=== PATIENT | male | born 1960 | race Caucasian/White ===

== ENCOUNTER → 2017-12-13 07:05 | Outpatient (CLI) | payer MEDICAID, SELFPAY ==
[2017-12-13 07:47] LABS: Basophils % 0.9 % (0.1-2.0); Eosinophils # 0.2 K/mm3 (0.0-0.4); Eosinophils % 5.6 % (0.1-12.0); Hematocrit 44.2 % (42.0-52.0); Hemoglobin 15.2 g/dL (14.1-18.0); Lymphocytes # 1.5 K/mm3 (0.7-4.5); Lymphocytes % 34.7 K/mm3 (10-50); Mean Corpuscular HGB Conc 34.3 g/dL (31.8-35.4); Mean Corpuscular Volume 90.4 fl (80-94); Mean Platelet Volume 8.2 fl (7.4-10.4); Monocytes # 0.4 K/mm3 (0.1-1.0); Monocytes % 9.5 % (1.7-9.3); Neutrophils # 2.1 K/mm3 (1.8-7.8); Neutrophils % 49.3 % (37.0-80.0); Platelet Count 234 K/mm3 (142-424); Red Blood Count 4.88 M/mm3 (4.60-6.20); White Blood Count 4.3 K/mm3 (4.8-10.8)
[2017-12-13 08:11] LABS: Hemoglobin A1C 6.1 % (0.0-7.0)
[2017-12-13 08:15] LABS: Alanine Aminotransferase 35 U/L (12-78); Albumin Level 3.5 gm/dL (3.4-5.0); Albumin/Globulin Ratio 1.2 (1.1-1.8); Alkaline Phosphatase 80 U/L (46-116); Aspartate Amino Transferase 19 U/L (15-37); Bilirubin,Total 0.6 mg/dL (0.2-1.0); Blood Urea Nitrogen 15 mg/dL (7-18); Calcium 8.9 mg/dL (8.5-10.1); Carbon Dioxide 23 mmol/L (21.0-32.0); Chloride 106 mmol/L (98-107); Chol/HDL Ratio 3.1 (1-3.5); Cholesterol 171 mg/dL (140-200); Creatinine,Serum 1.04 mg/dL (0.70-1.30); Estimated Glomerular Filt Rate 74 ml/min (>60); GFR (African American) 90 ML/MIN (>60); Glucose 108 mg/dL (74-106); HDL Cholesterol 55 mg/dL (27-67); LDL Cholesterol 85 mg/dL (0-130); Sodium 142 mmol/L (136-145); Total Protein,Serum 6.5 gm/dL (6.4-8.2); Triglycerides 153 mg/dL (30-200); VLDL Cholesterol 31 mg/dL (0-40)
[2017-12-14 18:25] LABS: Vitamin D 25 Hydroxy 35.9 ng/mL (30.0-100.0)
== END ==
PROVIDERS: PCP Internal Medicine Adolescent Medicine; Visit Provider Internal Medicine Adolescent Medicine
DX: I10 Essential (primary) hypertension (principal); E55.9 Vitamin D deficiency, unspecified; R73.9 Hyperglycemia, unspecified
CPT/HCPCS: 36415; 80053; 80061; 82652; 83036; 85025

== ENCOUNTER → 2018-07-08 12:52 | Outpatient (CLI) | payer MEDICAID, SELFPAY ==
[2018-07-08 14:27] LABS: Basophils # 0.1 K/mm3 (0-0.2); Basophils % 0.7 % (0.1-2.0); Eosinophils # 0.1 K/mm3 (0.0-0.4); Eosinophils % 0.7 % (0.1-12.0); Hematocrit 45.9 % (42.0-52.0); Hemoglobin 15.2 g/dL (14.1-18.0); Lymphocytes # 1.2 K/mm3 (0.7-4.5); Lymphocytes % 18.6 K/mm3 (10-50); Mean Platelet Volume 7.8 fl (7.4-10.4); Monocytes # 0.6 K/mm3 (0.1-1.0); Neutrophils # 4.7 K/mm3 (1.8-7.8); Platelet Count 287 K/mm3 (142-424); Red Blood Count 4.73 M/mm3 (4.60-6.20); Red Cell Distribution Width 14.3 % (11.5-17.5); White Blood Count 6.6 K/mm3 (4.8-10.8)
[2018-07-08 15:05] LABS: Alanine Aminotransferase 249 U/L (12-78); Albumin/Globulin Ratio 1.1 (1.1-1.8); Alkaline Phosphatase 92 U/L (46-116); Anion Gap 20.7 mEq/L (5-15); Aspartate Amino Transferase 103 U/L (15-37); Bilirubin,Total 0.5 mg/dL (0.2-1.0); Blood Urea Nitrogen 7 mg/dL (7-18); Carbon Dioxide 26 mmol/L (21.0-32.0); Chloride 101 mmol/L (98-107); Chol/HDL Ratio 2.8 (1-3.5); Cholesterol 232 mg/dL (140-200); Creatinine,Serum 1.28 mg/dL (0.70-1.30); Estimated Glomerular Filt Rate 58 ml/min (>60); GFR (African American) 71 ML/MIN (>60); Globulin 3.6 gm/dl (1.3-3.2); Glucose 155 mg/dL (74-106); HDL Cholesterol 84 mg/dL (27-67); LDL Cholesterol 122 mg/dL (0-130); Potassium 3.7 mmoL/L (3.5-5.1); Sodium 144 mmol/L (136-145); Total Protein,Serum 7.6 gm/dL (6.4-8.2); Triglycerides 131 mg/dL (30-200); VLDL Cholesterol 26 mg/dL (0-40)
[2018-07-09 08:32] LABS: Vitamin D 25 Hydroxy 42.3 ng/mL (30.0-100.0)
== END ==
PROVIDERS: Visit Provider Internal Medicine Adolescent Medicine
DX: E78.01 Familial hypercholesterolemia (principal); E55.9 Vitamin D deficiency, unspecified
CPT/HCPCS: 36415; 80053; 80061; 82652; 85025

== ENCOUNTER 2018-07-30 16:15 | Observation (INO) ==
--- NOTE | 2018-07-30 16:47 | Emergency Department Note ---
ED Disposition Clinical Impression: Dehydration, Hypokalemia Disposition: Still a Patient Condition on Discharge: Fair Referrals: Niko Duque MD [Primary Care Provider] - - Critical Care Critical Care Time: No Attestation: On 07/30/18, the high probability of a clinically significant, sudden or life threatening deterioration of the following system(s) required my full and direct attention, intervention and personal management. The time I documented below is in addition to time spent performing reported procedures but includes the following listed in this critical care notation. Medical Decision Making - Hernandez Inquiry Pt receiving controlled substance: No Vital Signs: 07/30/18 16:23 07/30/18 16:28 07/30/18 16:31 Temperature 98.2 F Temperature Source Oral Pulse Rate [Left Radial] 104 H 95 H 122 H Respiratory Rate 18 Blood Pressure [Right Arm] 119/100 128/78 102/43 Blood Pressure Mean [Right Arm] 106 94 62 Blood Pressure Position [Right Arm] Supine Supine Sitting 02 Sat by Pulse Oximetry 98 Oxygen Delivery Method Room Air - Lab Data Lab Results 07/30/18 16:48: WBC 9.3, RBC 4.63, Hgb 15.6, Hct 43.7, MCV 94.4 H, MCH 33.7 H, MCHC 35.7 H, RDW 14.3, Plt Count 108 L, MPV 9.7, Neut % (Auto) 80.1 H, Lymph % (Auto) 11.0, [place] % (Auto) 6.9, Eos % (Auto) 1.9, Baso % (Auto) 0.2, Neut # (Auto) 7.4, Lymph # (Auto) 1.0, [place] # (Auto) 0.6, Eos # (Auto) 0.2, Baso # (Auto) 0.0 07/30/18 16:48: Sodium 127 L, Potassium 2.4 L*, Chloride 82 L, Carbon Dioxide 29, Anion Gap 18.4 H, BUN 43 H, Creatinine 1.94 H, Estimated Creat Clear 61, Es timated GFR 36 L, Est GFR ( Amer) 44 L, Glucose 152 H, Calcium 8.7, Troponin I < 0.02 Result diagrams: 07/30/18 16:48 07/30/18 16:48 Orders (Tests/Meds): ED MEDICATIONS Generic Name Dose Route Start Last Admin Trade Name Freq PRN Reason Stop Dose Admin Sodium Chloride 1,000 mls @ 999 mls/hr 07/30/18 16:45 07/30/18 16:49 Sod Chlor 0.9% 1000ml Bag IV 07/30/18 17:45 999 mls/hr .Q1H1M BRITTANI Administration Discontinued Medications Generic Name Dose Route Start Last Admin Trade Name Freq PRN Reason Stop Dose Admin Ondansetron HCl 4 mg 07/30/18 17:19 07/30/18 17:22 Zofran 4mg/2ml Vial IV 07/30/18 17:20 4 mg ONCE ONE Administration Ondansetron HCl 4 mg 07/30/18 17:22 Zofran 4mg/2ml Vial IV 07/30/18 17:23 ONCE ONE Potassium Chloride 60 meq 07/30/18 17:16 Klor-Con 20meq Tablet PO 07/30/18 17:17 ONCE ONE ORDERS Category Date Time Status 12-lead EKG Request [ECG Request by /Jean] Stat Y 07/30/18 16:31 Ordered - Radiology Data #1 Image(s): Chest Image Reviewed: Yes I have reviewed radiologist's interpretation Preliminary Findings: Normal/NAD - ECG Data Tracing #1 EKG interpreted by nAgel Ji MD: Rhythm: sinus tachycardia Rate: 113 [place]: normal Ectopy: none Conduction: Incomplete right bundle branch block ST Segment Changes: Nonspecific T Wave Changes: none Q Waves: none Low voltage QRS No evidence of acute ischemia or injury Prior electrocardiagrams reviewed. No change from prior tracings. - Physician Consults Physician Consulted: Dunia Time: 17:19 Reason -: Admission Comment/Response: Agrees to admit the patient to the hospital. We discussed the patient's clinical information, including history, exam, laboratory and radiology results and ED course. Per hospital procedure, I will write temporary bridge inpatient orders on the patient. Specific orders requested by the admitting physician: Normal saline with 40 mcg of potassium per liter. Recheck labs in the morning General Adult HPI - General Chief complaint: Dizziness Stated complaint: AO [id number] fell weakness SOb Time Seen by Provider: 07/30/18 16:45 Mode of Arrival: Ambulatory Limitations: No Limitations Description of Symptoms (Recalled from ER Triage Doc. by RN): to ed per pvt with c/o lightheaded dizziness x 2 days vomiting x 2 states fell today "lost my balance" - History of Present Illness HPI narrative: Patient states that he has been dehydrated twice in his life and now he feels the same again. For the past couple of days he has had dry mouth, weakness, dizziness when he stands. Feels presyncopal when he stands and has had to lay down a couple of times quickly to avoid fainting, but has not passed out. States that he has been drinking lots of fluids, but not eating much. States his urination has decreased. No fever. He is not on any diuretics. No excessive diaphoresis. A couple of episodes of vomiting. No diarrhea. He is not sure why he gets dehydrated. No chest pain. He says he feels dyspneic when he gets up and walks around. His sister believes this is because he is weak. No cough. No hemoptysis. No leg swelling. No recent surgeries or hospitalizations. He does have a history of rectal cancer. Just recently comp leted treatment with chemotherapy and radiation in is said to be in remission. - Related Data Home Medications Medication Instructions Recorded Confirmed carvedilol 6.25 mg tablet 6.25 mg PO BID 04/22/18 07/30/18 quetiapine 25 mg tablet 25 mg PO BID 04/22/18 07/30/18 tamsulosin 0.4 mg capsule 0.4 mg PO ONCE 04/22/18 07/30/18 Allergies Allergy/AdvReac Type Severity Reaction Status Date / Time penicillin G [PENICILLIN G] Allergy Mild Verified 07/30/18 16:49 [facility] History I have reviewed the patient's past medical history: Yes Medical History: Reports:: Cancer, Hypertension Other Surgeries: Yes: Cancer Surgery - Social History Smoking Status: Never smoker Alcohol Intake: never Alcohol Intake Frequency:: a few times a week Substance Use Type: denies use - Psychiatric History Expresses thoughts of harming self/others: None Suicide Plan Description: No Plan Family Hx:: Unable to obtain ROS Obtained: Yes All systems reviewed & no additional complaints - Constitutional Constitutional: Reports fatigue, Denies fever(s), Reports poor appetite, Reports weakness - ENT Ears, Nose, Mouth, and Throat: Denies nasal discharge, Denies sore throat - Cardiovascular Cardiovascular: Denies chest pain - Respiratory Respiratory: No cough, Yes dyspnea on exertion - Gastrointestinal Gastrointestingal: Denies: abdominal pain, diarrhea, nausea - Neurologic Neurologic: Denies focal weakness, Denies headache(s) Physical Exam - General General appearance: alert, in no apparent distress - Head Head exam: atraumatic, normocephalic, normal inspection - Eye Eye exam: Present: normal appearance, PERRL, EOMI - ENT ENT exam: Present: mucous membranes dry - Neck Neck exam: Present: normal inspection, full ROM, trachea midline. Absent: meningismus, lymphadenopathy - Chest Chest inspection: Present: normal inspection, symmetric chest wall rise. Absent: tenderness - Respiratory Respiratory exam: Present: normal lung sounds bilaterally. Absent: respiratory distress - Cardiovascular Cardiovascular exam: Present: normal rhythm, tachycardia. Absent: JVD - Abdominal Exam Abdominal exam: Present: soft, normal bowel sounds. Absent: distention, tenderness, guarding - Extremities Exam Extremities exam: Present: normal inspection, full ROM, normal capillary refill. Absent: calf tenderness - Back Exam Back exam: Present: normal inspection. Absent: tenderness - Neurological Exam Neurological exam: Present: alert, oriented X3, CN II-XII intact. Absent: motor sensory deficit - Psychiatric Psychiatric exam: Present: normal affect, normal mood - Skin Skin exam: Present: warm, dry, intact, normal color
[2018-07-30 16:51] LABS: Basophils % 0.2 % (0.1-2.0); Eosinophils # 0.2 K/mm3 (0.0-0.4); Eosinophils % 1.9 % (0.1-12.0); Hematocrit 43.7 % (42.0-52.0); Hemoglobin 15.6 g/dL (14.1-18.0); Mean Corpuscular HGB Conc 35.7 g/dL (31.8-35.4); Mean Corpuscular Hemoglobin 33.7 pg (27.0-31.2); Mean Corpuscular Volume 94.4 fl (80-94); Mean Platelet Volume 9.7 fl (7.4-10.4); Monocytes # 0.6 K/mm3 (0.1-1.0); Monocytes % 6.9 % (1.7-9.3); Neutrophils # 7.4 K/mm3 (1.8-7.8); Neutrophils % 80.1 % (37.0-80.0); Platelet Count 108 K/mm3 (142-424); Red Blood Count 4.63 M/mm3 (4.60-6.20); Red Cell Distribution Width 14.3 % (11.5-17.5); White Blood Count 9.3 K/mm3 (4.8-10.8)
[2018-07-30 17:09] LABS: Anion Gap 18.4 mEq/L (5-15); Blood Urea Nitrogen 43 mg/dL (7-18); Calcium 8.7 mg/dL (8.5-10.1); Carbon Dioxide 29 mmol/L (21.0-32.0); Chloride 82 mmol/L (98-107); Glucose 152 mg/dL (74-106); Sodium 127 mmol/L (136-145)
[2018-07-30 17:10] LABS: Potassium 2.4 mmoL/L (3.5-5.1)
[2018-07-31 06:48] LABS: Anion Gap 11.3 mEq/L (5-15); Calcium 8.1 mg/dL (8.5-10.1); Potassium 3.3 mmoL/L (3.5-5.1)
--- NOTE | 2018-07-31 07:26 | Pharmacy Consult Notes ---
[facility] Pharmacy VTE Monitoring - Patient Demographics Admission date: 07/30/18 Report Date: 07/31/18 Time: 07:25 Allergies/Adverse Reactions: Patient Allergies penicillin G [PENICILLIN G] Allergy (Mild, Verified 07/30/18 16:49) Height: 1.85 m Weight: 94.829 kg Patient Problems: Current Active Problems Dehydration (Acute) Hypokalemia (Acute) - VTE Risk Labs: VTE Related Lab Results Hgb 15.6 g/dL (14.1-18.0) 07/30/18 16:48 Hct 43.7 % (42.0-52.0) 07/30/18 16:48 Plt Count 108 K/mm3 (142-424) L 07/30/18 16:48 BUN 32 mg/dL (7-18) H D 07/31/18 06:20 Creatinine 1.56 mg/dL (0.70-1.30) H 07/31/18 06:20 Estimated Creat Clear 72 mL/min (0-300) 07/31/18 06:20 VTE Score: 5 VTE Risk Level: Low Risk - Prophylaxis VTE Prophylaxis Ordered?: Yes Types of VTE Prophylaxis: TEDS Knee High Location of Applied Device: Bilateral Lower Extremeties - VTE Diagnosis Confirmed Treatment or plan recommended: Continue Current Treatment
[2018-07-31 07:32] VITALS: BP 137/79
--- NOTE | 2018-07-31 08:10 | History & Physical Report ---
*Admission Date: 07/30/18 *Chief complaint: Weakness, fall *History of present illness: 57-year-old white male with history of hypertension and rectal cancer currently status post resection and with no evidence of recurrence who yesterday at home had an episode of vomiting with significant retching and inability to take p.o. Denies diarrhea. Became very orthostatic and dizzy and fell, striking his forehead and legs, with suffering minor abrasions. Brought to the emergency department where he was found to be hypokalemic, hypovolemic and dehydrated with acute kidney injury. Admitted for IV fluid resuscitation. [facility] History I have reviewed the patient's past medical history: Yes Medical History: Reports:: Cancer (Rectal cancer, currently cancer free status post resection), Hypertension Other Surgeries: Yes: Cancer Surgery - *Social History Smoking Status: Never smoker Alcohol Intake: current Alcohol Intake Frequency:: a few times a week Substance Use Type: denies use Occupational Status: unemployed - Psychiatric History Expresses thoughts of harming self/others: None Suicide Plan Description: No Plan *Family Hx:: Unable to obtain Review of Systems - Review of Systems Review of systems:: pertinent systems reviewed and negative unless documented below - Constitutional Denies body ache(s), Denies chills - Eyes Denies blind spots - ENT Denies abnormal hearing - *Cardiovascular Denies chest pain, Denies chest pain at rest, Denies shortness of breath - *Respiratory Denies change in phlegm color, Denies chest congestion - *Gastrointestinal Reports vomiting, Denies abdominal pain, Denies belching, Denies excessive passing of gas, Denies vomiting blood, Denies bright, red blood in stools, Denies loose stools - *Genitourinary Denies difficulty urinating - *Musculoskeletal Denies abnormal walking - *Neurologic Reports weakness, Denies localized weakness, Denies headache(s) Meds Home Medications Medication Instructions Recorded Confirmed Type carvedilol 6.25 mg tablet 6.25 mg PO BID 04/22/18 07/30/18 History tamsulosin 0.4 mg capsule 0.4 mg PO ONCE 04/22/18 07/30/18 History Quetiapine Fumarate [Quetiapine 300 mg PO HS 07/31/18 07/31/18 History Fumarate ER] Allergies Allergy/AdvReac Type Severity Reaction Status Date / Time penicillin G [PENICILLIN G] Allergy Mild Verified 07/30/18 16:49 Exam Vital signs and Labs for Last 24 Hours: Temp Pulse Resp BP Pulse Ox 98.0 F 114 H 18 137/79 95 07/31/18 07:30 07/31/18 07:30 07/31/18 07:30 07/31/18 07:30 07/31/18 07:30 Laboratory Results - last 24 hr 07/30/18 16:45: Magnesium 1.6 07/30/18 16:48: WBC 9.3, RBC 4.63, Hgb 15.6, Hct 43.7, MCV 94.4 H, MCH 33.7 H, MCHC 35.7 H, RDW 14.3, Plt Count 108 L, MPV 9.7, Neut % (Auto) 80.1 H, Lymph % (Auto) 11.0, [place] % (Auto) 6.9, Eos % (Auto) 1.9, Baso % (Auto) 0.2, Neut # (Auto) 7.4, Lymph # (Auto) 1.0, [place] # (Auto) 0.6, Eos # (Auto) 0.2, Baso # (Auto) 0.0 07/30/18 16:48: Sodium 127 L, Potassium 2.4 L*, Chloride 82 L, Carbon Dioxide 29, Anion Gap 18.4 H, BUN 43 H, Creatinine 1.94 H, Estimated Creat Clear 61, Estimated GFR 36 L, Est GFR ( Amer) 44 L, Glucose 152 H, Calcium 8.7, Troponin I < 0.02 07/31/18 06:20: Sodium 134 L, Potassium 3.3 L D, Chloride 95 L, Carbon Dioxide 31, Anion Gap 11.3, BUN 32 H D, Creatinine 1.56 H, Estimated Creat Clear 72, Estimated GFR 46 L, Est GFR ( Amer) 56 L D, Glucose 102 D, Calcium 8.1 L I & O for Last 24 hours: Intake & Output 07/28/18 07/29/18 07/30/18 07/31/18 11:59 11:59 11:59 11:59 Intake Total 360 / 360 Output Total 400 / 400 Balance -40 / -40 Weight 209 lb 1 oz Narrative: Patient is awake, alert, pleasant. Oriented 3. ENT exam shows a small abrasion on the right forehead. No other evidence of trauma. Oropharynx clear. Lungs clear, heart rate regular, abdomen soft, nontender. No edema or clubbing his extremities. Moves all extremities well. Assessment and Plan (1) Dehydration Current visit: Yes Status: Acute Category: Medical Code(s): E86.0 - Dehydration (2) Hypokalemia Current visit: Yes Status: Acute Category: Medical Code(s): E87.6 - Hypokalemia - Assessment and plan all Dx Assessment and Plan for all problems:: Patient feels somewhat better, his creatinine has improved as has his potassium. Continue IV fluids today. After lunch we will check orthostatic vital signs and see if he feels reasonable.
--- NOTE | 2018-08-02 08:24 | Discharge Summary ---
General - General Admission date:: 07/30/18 Discharge date: 07/31/18 HPI HPI: 57-year-old white male, admitted through the emergency department for orthostatic hypotension, dehydration and hypokalemia along with acute kidney injury. Please see admission H&P for details Hospital Course Hospital Course: Patient was admitted, fluid replaced with intravenous normal saline. No further vomiting. Patient ate well over the next 12 hours. This morning labs improved. Given more fluids and orthostatic vital signs returned normal. Patient will be discharged with instructions as below. Objective Vital signs: Temp Pulse Resp BP Pulse Ox 98.0 F 114 H 18 137/79 95 07/31/18 07:30 07/31/18 07:30 07/31/18 07:30 07/31/18 07:30 07/31/18 07:30 Narrative: ENT exam clear, no JVD, lungs clear, heart rate regular, no edema. Patient's alert and pleasant. Results Labs on day of discharge: Labs from last 24 hours 07/31/18 07/30/18 07/30/18 06:20 16:48 16:48 WBC 9.3 RBC 4.63 Hgb 15.6 Hct 43.7 MCV 94.4 H MCH 33.7 H MCHC 35.7 H RDW 14.3 Plt Count 108 L MPV 9.7 Neut % (Auto) 80.1 H Lymph % (Auto) 11.0 [place] % (Auto) 6.9 Eos % (Auto) 1.9 Baso % (Auto) 0.2 Neut # (Auto) 7.4 Lymph # (Auto) 1.0 [place] # (Auto) 0.6 Eos # (Auto) 0.2 Baso # (Auto) 0.0 Sodium 134 L 127 L Potassium 3.3 L D 2.4 L* Chloride 95 L 82 L Carbon Dioxide 31 29 Anion Gap 11.3 18.4 H BUN 32 H D 43 H Creatinine 1.56 H 1.94 H Estimated Creat Clear 72 61 Estimated GFR 46 L 36 L Est GFR ( Amer) 56 L D 44 L Glucose 102 D 152 H Calcium 8.1 L 8.7 Magnesium Troponin I < 0.02 07/30/18 16:45 WBC RBC Hgb Hct MCV MCH MCHC RDW Plt Count MPV Neut % (Auto) Lymph % (Auto) [place] % (Auto) Eos % (Auto) Baso % (Auto) Neut # (Auto) Lymph # (Auto) [place] # (Auto) Eos # (Auto) Baso # (Auto) Sodium Potassium Chloride Carbon Dioxide Anion Gap BUN Creatinine Estimated Creat Clear Estimated GFR Est GFR ( Amer) Glucose Calcium Magnesium 1.6 Troponin I DS: Diagnosis - Discharge Diagnosis (1) Dehydration Status: Resolved (2) Hypokalemia Status: Resolved Discharge Plan - Patient Discharge Instructions ACTIVITY: Continue current activity DIET: continue same diet Additional Instructions: Do not start carvedilol till tomorrow morning - Follow up Plan Follow up with: Yuki Corey APRN [Nurse Practitioner] - 1 week Disposition: Home, Self-Halfway Medications: Home Medications Medication Instructions Recorded Confirmed Type carvedilol 6.25 mg tablet 6.25 mg PO BID 04/22/18 07/30/18 History tamsulosin 0.4 mg capsule 0.4 mg PO DAILY 04/22/18 07/31/18 History Quetiapine Fumarate [Quetiapine 300 mg PO HS 07/31/18 07/31/18 History Fumarate ER] Prescriptions/Medication Reconciliation: Continue carvedilol 6.25 mg tablet 6.25 mg PO BID Quetiapine Fumarate [Quetiapine Fumarate ER] 300 mg PO HS Discontinued tamsulosin 0.4 mg capsule 0.4 mg PO DAILY
== END 2018-07-31 14:16 | disposition home or self-care (01) ==
LOC: 2ND 16:15 → ER 16:15 → 2ND 18:19
PROVIDERS: ADMIT Internal Medicine Adolescent Medicine; ATTEND Internal Medicine Adolescent Medicine

== ENCOUNTER 2019-04-18 10:29 | Emergency (ER) | payer MEDICAID, SELFPAY ==
--- NOTE | 2019-04-18 10:44 | HMH.EDUTC ---
[facility] [place] Clinical Impression: RLL pneumonia Qualifiers: Pneumonia type: due to unspecified organism Qualified Code(s): J18.1 - Lobar pneumonia, unspecified organism Disposition: Home, Self-Care Condition on Discharge: Good Instructions: DI for Pneumonia -- Adult Prescriptions: levoFLOXacin [Levaquin] 500 mg PO BID 10 Days #20 tab predniSONE [Prednisone 20mg Tab] 20 mg PO BID 5 Days #10 tab Promethazine/Dextromethorphan [Promethazine-Dm Syrup] 5 ml PO Q6H PRN 10 Days #120 syrup PRN Reason: Cough Referrals: Niko Duque MD [Primary Care Provider] - Time of Disposition: 11:42 Medical Decision Making - Hernandez Inquiry Pt receiving controlled substance: No Vital Signs: 04/18/19 10:47 04/18/19 11:15 Temperature 98.4 F Temperature Source Oral Pulse Rate 115 H Pulse Rate [Right Radial] 121 H Respiratory Rate 20 Blood Pressure [Right Arm] 135/99 H Blood Pressure Mean [Right Arm] 111 Blood Pressure Source [Right Arm] Automatic Cuff Blood Pressure Position [Right Arm] Sitting 02 Sat by Pulse Oximetry 95 94 L Oxygen Delivery Method Room Air Room Air Orders (Tests/Meds): ORDERS Category Date Time Status Chest XR 2 view (NOT portable) [XR chest 2V] Stat Exams 04/18/19 10:59 Taken - Radiology Data #1 Image(s): Chest Image Reviewed: Yes I reviewed the patient's radiology image Preliminary Findings: Abnormal (RLL infiltrate) [facility] [place] - General Stated complaint: Shortness of breath, cough, tight chest Time Seen by Provider: 04/18/19 10:45 - History of Present Illness Provider Complaint: SOA, cough, chest tightness X 2 weeks. No fever. Cough mostly non productive. States he feels as bad as he did when he had the flu. No vomiting. H/O rectal cancer. Has PE on left. On Xarelto. Onset (ago): week(s) (2) Location: chest Relieving factors: none Exacerbating factors: none Associated symptoms: cough Treatments prior to arrival: none - Related Data Home Medications Medication Instructions Recorded Confirmed carvedilol 6.25 mg tablet 6.25 mg PO BID 04/22/18 01/30/19 Rivaroxaban [Xarelto 15mg tablet] 15 mg PO DAILY 01/17/19 01/30/19 Polyethylene Glycol 3350 [Gavilax] 17 gm PO DAILY PRN 01/30/19 01/30/19 Previous Rx's Medication Instructions Recorded Benzonatate [Tessalon [place] 100mg 100 mg PO TID PRN #30 cap 01/30/19 Cap] Doxycycline Hyclate [Doxycycline 100 mg PO BID #10 cap 01/30/19 100mg Capsule] Promethazine/Dextromethorphan 5 ml PO Q6H PRN 10 Days #120 syrup 04/18/19 [Promethazine-Dm Syrup] levoFLOXacin [Levaquin] 500 mg PO BID 10 Days #20 tab 04/18/19 predniSONE [Prednisone 20mg 20 mg PO BID 5 Days #10 tab 04/18/19 Tab] Allergies Allergy/AdvReac Type Severity Reaction Status Date / Time penicillin G [PENICILLIN G] Allergy Mild Verified 01/30/19 11:19 [facility] History - Hepatitis A Screen Attestation statement:: This patient has been screened for Hepatitis A risk factors. I have reviewed the patient's past medical history: Yes Medical History: Reports:: Cancer (Rectal cancer, currently cancer free status post resection), Hypertension Other Surgeries: Yes: Cancer Surgery - Social History Smoking Status: Never smoker Alcohol Intake: never Alcohol Intake Frequency:: a few times a week Substance Use Type: denies use Occupational Status: unemployed Family Hx:: Unable to obtain ROS Obtained: Yes All systems reviewed & no additional complaints - Constitutional Constitutional: Reports body ache, Reports fatigue, Denies fever(s), Reports malaise - Respiratory Respiratory: Yes cough, Yes non-productive cough, Yes dyspnea, Yes dyspnea on exertion Physical Exam - General General appearance: alert, in no apparent distress - Head Head exam: atraumatic, normocephalic, normal inspection - Eye Eye exam: Present: normal appearance, PERRL, EOMI - ENT ENT exam: Present: normal exam, normal oropharynx, mucous membranes
[2019-04-18 10:47] VITALS: BP 135/99; PULSE 121; RESP 20; TEMP 36.9; O2SAT 95; BMI 30.3
--- NOTE | 2019-04-18 10:59 | XR_ITS ---
XR chest 2V HISTORY: ITS.REASON: SOA ORDERING PHYSICIAN: MONICA Talley PATIENT AGE: 58 years COMPARISON: 07/30/2018 FINDINGS: Borderline cardiomegaly without failure. Fibrotic changes are present in the right infrahilar region. Calcified granuloma is noted in the left lower lobe. No lobar consolidation or collapse. No acute bony findings. IMPRESSION: Chronic changes, with borderline cardiomegaly, no acute finding
[2019-04-18 11:15] VITALS: PULSE 114; PULSE 115; O2SAT 94
--- NOTE | 2019-04-18 11:17 | PC.NURSE ---
PT TO RAD
[2019-04-18 11:46] VITALS: BP 135/99; PULSE 115; RESP 20; TEMP 36.9; O2SAT 94
== END 2019-04-18 11:46 | disposition home or self-care (01) ==
PROVIDERS: Emergency Provider Physician Assistant; PCP Internal Medicine Adolescent Medicine
DX: J18.1 Lobar pneumonia, unspecified organism (principal); I10 Essential (primary) hypertension; Z88.0 Allergy status to penicillin; Z85.048 Personal history of other malignant neoplasm of rectum, rectosigmoid junction, and anus
CPT/HCPCS: 71046; 99201

== ENCOUNTER 2019-05-07 16:00 | Outpatient (RCR) | payer MEDICAID, SELFPAY ==
--- NOTE | 2019-03-04 15:43 | HMH.PTOPEV ---
PT Outpatient Evaluation Rehab PT Outpatient Evaluation Start: 03/04/19 15:33 Freq: Status: Active Protocol: Document 03/04/19 15:33 TEMI (Rec: 03/04/19 15:42 TEMI [id number]) Electronically Signed By Bull Thomas, PT 03/04/19 15:33 Outpatient Therapy Subjective History Subjective History Pt reports h/o chronic LBP since sustaining a lifting injury ~12 yrs ago, caused a ' compression fracture in my low back'. Pt reports midline LBP , w/o radicular s/s, however, reports exacerbation over the last ~6 months d/t fx. neck vertebrae, DVT's(L LUNG, L LE) , hernias, and chemo/radiation treatments for colo-rectal cancer, 'it was just one thing after another'. Chief Complaint Pain Stiff Weakness Symptom Type Ache Sharp Dull Symptoms Relieved By Nothing Symptoms Aggravated By Standing Physical Activity Walking Lifting Prior Functional Limitations Lifting Housework Standing Walking Current Functional Limitations Lifting Housework Standing Walking Symptom Description Constant but Variable Level of pain today (0-10) 8 Pain scale - at its best (0-10) 4 Pain scale - at its worst (0-10) 10 Lumbopelvic Eval Posture Thoracic Spine Posture Standing Position Neutral Lumbar Spine Posture Standing Position Flattened Assistive device Assistive Devices None / NA Gait Observation General Gait Pattern Observation No Deviations/Normal Palapation tenderness bilateral lumbar spinal tenderness Yes: 1-2/4 Lumbar/Sacral Palpation Findings Tenderness Accessory Movement L-spine Vertebrae Accessory Movements Central P/A [place] that [place]it Symptoms L5 bilateral Range of Motion Lumbar Spine Active Flexion Range of 0-80 Motion (degrees) Lumbar Spine Active Extension Range of 0-25 Motion (degrees) Left Lumbar Spine Lateral Flexion Active 0-25 Range of Motion (degrees) Right Lumbar Spine Lateral Flexion 0-25 Active Range of Motion (degrees) L
--- NOTE | 2019-04-03 15:32 | HMH.RHREAS ---
Rehab Reassessment Rehab OP Re-assessment Start: 04/03/19 15:28 Freq: Status: Active Protocol: Document 04/03/19 15:28 TEMI (Rec: 04/03/19 15:32 TEMI [id number]) Electronically Signed By Bull Thomas, PT 04/03/19 15:28 Rehab Re-assessment Subjective Subjective PT REPORTS 7-8/10 LBP ON VAS, AND FEELS 'SOMEWHAT BETTER' OVERALL SINCE I EVAL. 'I THINK MY STRENGTH IS BETTER'. Objective Objective Notes AROM L-SPINE FLX 0-65, EXT 0- 25, B SB 0-25 MMT: B HIP FLX 4-4+/5, B HIP ABD 4/5, B KNEE EXT 5/5, B KNEE FLX 5/5, B HIP ADD 4/5 TTP; B LUMBAR PARA 0-1/4, B PIRI 0-1/4 Assessment Progress Assessment Progressing as Expected Assessment Notes PT W/IMPROVED STRENGTH AND TTP Patient goals met STG'S 03/25 LTG'S 11/26 Goals Not Met STG'S 12/26, LTG'S 05/26 Plan Plan PT TO CONT. W/SKILLED P.T. TO MAKE FURTHER IMPROVEMENTS W/ ROM, STRENGTH, AND TTP TO ALLOW FOR OPTIMAL FUNCTION Frequency of Therapy 1-2X/WK Duration of therapy 3-4 WKS Time and Billing Re-Eval Time 15 Re-Eval Billing Units 1 PHYSICIAN CERTIFICATION: I certify the specified therapy services for Andres Quinones are required, authorized, and reviewed every 30 days.
== END 2019-05-07 16:05 | disposition home or self-care (01) ==
LOC: PT 16:00
PROVIDERS: Visit Provider Internal Medicine Adolescent Medicine
DX: M54.5 Low back pain (principal)
CPT/HCPCS: 97110; 97140; 97163; 97164

== ENCOUNTER → 2019-07-23 11:55 | Outpatient (CLI) | payer MEDICAID, SELFPAY ==
[2019-07-23 12:14] LABS: Basophils % 0.8 % (0.1-2.0); Eosinophils # 0.1 K/mm3 (0.0-0.4); Eosinophils % 1.4 % (0.1-12.0); Hematocrit 46.1 % (42.0-52.0); Hemoglobin 15.2 g/dL (14.1-18.0); Lymphocytes # 2.1 K/mm3 (0.7-4.5); Lymphocytes % 40.1 % (10-50); Mean Corpuscular HGB Conc 32.9 g/dL (31.8-35.4); Mean Corpuscular Hemoglobin 32.9 pg (27.0-31.2); Mean Platelet Volume 6.8 fl (7.4-10.4); Monocytes # 0.3 K/mm3 (0.1-1.0); Monocytes % 6.2 % (1.7-9.3); Neutrophils # 2.7 K/mm3 (1.8-7.8); Neutrophils % 51.5 % (37.0-80.0); Platelet Count 234 K/mm3 (142-424); Red Blood Count 4.61 M/mm3 (4.60-6.20); Red Cell Distribution Width 14.8 % (11.5-17.5); White Blood Count 5.2 K/mm3 (4.8-10.8)
[2019-07-23 12:18] LABS: Activated Partial Thrombo Time 24.5 seconds (23.6-34.0); INR 1.05 (0.9-1.1); Prothrombin Time 10.9 seconds (9.4-11.8)
[2019-07-23 14:30] LABS: Alanine Aminotransferase 135 U/L (12-78); Albumin Level 3.4 gm/dL (3.4-5.0); Alkaline Phosphatase 100 U/L (46-116); Anion Gap 13.6 mEq/L (5-15); Aspartate Amino Transferase 171 U/L (15-37); Bilirubin,Total 0.3 mg/dL (0.2-1.0); Blood Urea Nitrogen 5 mg/dL (7-18); Calcium 8.7 mg/dL (8.5-10.1); Carbon Dioxide 29 mmol/L (21.0-32.0); Chloride 109 mmol/L (98-107); Creatinine,Serum 0.88 mg/dL (0.70-1.30); Estimated Glomerular Filt Rate 90 ml/min (>60); GFR (African American) 108 ML/MIN (>60); Globulin 3.5 gm/dl (1.3-3.2); Glucose 105 mg/dL (74-106); Potassium 3.6 mmoL/L (3.5-5.1); Sodium 148 mmol/L (136-145); Total Protein,Serum 6.9 gm/dL (6.4-8.2)
== END ==
PROVIDERS: Visit Provider Internal Medicine Adolescent Medicine
DX: Z86.711 Personal history of pulmonary embolism (principal)
CPT/HCPCS: 36415; 80053; 85025; 85610; 85730

== ENCOUNTER → 2019-10-22 13:03 | Outpatient (CLI) | payer OTHER, SELFPAY ==
--- NOTE | 2019-10-22 | CA_ITS ---
APPROVED REPORT Bilateral Lower Extremity Venous Study for DVT. Licensed Funeral Director And Embalmer: CT Past History DVT : Vein Imaging CFV (R): compressive, spontaneous, phasic, augmentation SFJ (R): compressive, spontaneous, phasic, augmentation FEM (R): compressive, spontaneous, phasic, augmentation POP (R): compressive, spontaneous, phasic, augmentation DFV (R): compressive, spontaneous, phasic, augmentation PTV (R): compressive, spontaneous, phasic, augmentation GSV (R): compressive, spontaneous, phasic, augmentation SSV (R): compressive, spontaneous, phasic, augmentation Peroneals (R):compressive, spontaneous, phasic, augmentation GAS (R): compressive, spontaneous, phasic, augmentation CFV (L): compressive, spontaneous, phasic, augmentation SFJ (L): compressive, spontaneous, phasic, augmentation FEM (L): compressive, spontaneous, phasic, augmentation POP (L): compressive, spontaneous, phasic, augmentation DFV (L): compressive, spontaneous, phasic, augmentation PTV (L): compressive, spontaneous, phasic, augmentation GSV (L): compressive, spontaneous, phasic, augmentation SSV (L): compressive, spontaneous, phasic, augmentation Peroneals (L):compressive, spontaneous, phasic, augmentation GAS (L): compressive, spontaneous, phasic, augmentation Findings Bilateral Lower extremity venous doppler negative for DVT/SVT. Vessels appear compressible. Difficult exam pt moved thru out exam and not cooperative, appears confused. Dr Duque notified , pt taken to the ER for further evaluation. Conclusion No evidence of DVT or superficial thrombophlebitis in the veins scanned of the right lower extremity. No evidence of DVT or superficial thrombophlebitis in the veins scanned of the left lower extremity. Electronically signed by : Brennon Little MD 10/22/2019 19:17:51
--- NOTE | 2019-10-22 | CA_ITS ---
APPROVED REPORT EXAM: Comprehensive 2D, Doppler, and color-flow Echocardiogram Certified Surgical Tech/First Assistant: Buffy Hernandez RT(R) Ht: 6 ft 1 in Wt: 230lbs BSA: 2.28 BP: 160/110 mmHg Indications: sob 2D Dimensions LVOT 2.11 cm (M/F) 1.5-2.5 M-Mode Dimensions RVDd 3.26 cm (0.9-2.6) LVDd 4.47 cm (3.5-5.7) LVDs 3.24 cm (3.5-5.7) IVSd 1.02 cm (0.6-1.1) PWd 1.02 cm (0.6-1.1) EF (Teich) 53.60% FS 27.50% EDV (Teich) 91.00 mL ESV (Teich) 42.20 mL LV Diastology E/A Ratio 1.01 Mitral Valve MV A Velocity 69.00 (40-130 cm/s) Left Ventricle Left atrium is mildly enlarged, left ventricle is normal size, left ventricular wall thickness is upper limit of the normal, there is preserved left ventricular systolic function, visually estimated ejection fraction 55% with no regional wall motion abnormality, endocardial surfaces are poorly visualized. Grade 1 diastolic dysfunction seen without tissue Doppler evidence of raise left atrial pressure. Right Ventricle Right atrium and right ventricular mildly enlarged with normal contractility. Aortic Valve Aortic valve is grossly normal, there is no aortic stenosis aortic insufficiency. Mitral Valve Mitral valve is grossly normal, there is mild mitral regurgitation. Tricuspid Valve Tricuspid valve is grossly normal, there is mild tricuspid regurgitation. Tricuspid regurgitation jet velocity is inadequate for calculation of the right ventricular systolic pressure. Pulmonic Valve Pulmonic valve is poorly visualized. Great Vessels Aortic root is normal size. No significant pericardial effusion noted. Conclusion 1. Normal left ventricular size, visually estimated ejection fraction 55% with no regional wall motion abnormality, grade 1 diastolic dysfunction seen without tissue Doppler evidence of raise left atrial pressure. 2. Mildly enlarged right ventricle with normal contractility. 3. Mild mitral and tricuspid regurgitation. 4. No significant pericardial effusion noted. Electronically signed by : Roger Whitaker, 10/24/2019 13:44:46
== END ==
PROVIDERS: PCP Internal Medicine Adolescent Medicine; Visit Provider Surgery
DX: R06.02 Shortness of breath (principal); Z86.718 Personal history of other venous thrombosis and embolism
CPT/HCPCS: 93306; 93970

== ENCOUNTER → 2020-03-16 13:40 | Outpatient (CLI) | payer OTHER, SELFPAY ==
--- NOTE | 2020-03-16 13:45 | CT_ITS ---
PROCEDURE: CT CERVICAL SPINE WO CON CLINICAL INDICATION: PAIN OF LT MASTOID,ARM PARESTHESIA Numbness, tingling, pain, history of neck fracture COMPARISON: [facility] CT CERVICAL SPINE W/O CONT from 11/07/2016 TECHNIQUE: Axial images obtained with sagittal and coronal reformats. All CT scans at the facility use one or more dose reduction, viz: automated exposure control, ma/kV adjustment per patient size (including targeted exams where dose is matched to indication, i.e. head), or iterative reconstruction technique. Axial spiral CT scanning performed of the cervical spine beginning at the base of the skull and continuing to the upper T-spine. 3-D multiplanar reconstruction with 3-D manipulation of volumetric data set in image rendering was completed by the radiologist and/or technologist with the supervision of the radiologist on independent workstation. FINDINGS: There is slight reversal of the cervical lordosis. No acute fracture or dislocation is evident. There is an old fracture involving the base of the odontoid. C2-C3: Mild degenerative disc disease with right-sided foraminal narrowing from facet and uncovertebral hypertrophy. The facets at C2 and C3 appear fused on both sides. C3-C4: Degenerate disc disease. There is bilateral foraminal right greater than left from facet and uncovertebral hypertrophy C4-C5: Degenerate disc disease with facet hypertrophic change with bilateral foraminal narrowing right greater than left. C5-C6: Degenerate disc disease with endplate and facet hypertrophy with left lateral recess and foraminal C6-C7: Degenerate disc disease. 3 mm anterolisthesis of C6. There is mild bilateral foraminal narrowing. C7-T1: Mild degenerative disc disease. There is loss of height of C7 anteriorly similar in appearance to the previous exam. IMPRESSION: There is multilevel cervical spondylosis with degenerative disc disease along with uncovertebral and facet hypertrophy with lateral recess and foraminal narrowing at multiple levels. Please see above for detailed description at each level. Dictated by: Brennon Little MD 03/17/2020 14:19 Electronically signed by Brennon Little MD in [place] 03/17/2020 14:19
--- NOTE | 2020-03-16 13:45 | CT_ITS ---
PROCEDURE: CT MASTOID W/O CLINICAL HISTORY: PAIN OF LT MASTOID,ARM PARESTHESIA Left mastoid pain COMPARISON: No exams were available for comparison TECHNIQUE: Axial images obtained with sagittal and coronal reformats. All CT scans at the facility use one or more dose reduction, viz: automated exposure control, ma/kV adjustment per patient size (including targeted exams where dose is matched to indication, i.e. head), or iterative reconstruction technique. FINDINGS: There is a pacified mastoid air cell on the right inferiorly and a few small opacified air cells of the left mastoid sinus. No bony destructive process is evident. Middle ears are well aerated. No evidence scutal erosion. The ossicles have an unremarkable appearance. There are moderate osteoarthritic changes of the TMJ on the left with flattening of the mandibular condyle. There is a 3 cm retention cyst in the floor the left maxillary sinus the orbits have an unremarkable appearance IMPRESSION: There are minimal inflammatory changes of the mastoid sinuses. Left TMJ osteoarthritis Left maxillary sinus retention cyst Dictated by: Brennon Little MD 03/17/2020 14:24 Electronically signed by Brennon Little MD in [place] 03/17/2020 14:24
== END ==
PROVIDERS: PCP Internal Medicine Adolescent Medicine; Visit Provider Internal Medicine Adolescent Medicine
DX: R20.2 Paresthesia of skin (principal); H92.02 Otalgia, left ear
CPT/HCPCS: 70486; 72125

== ENCOUNTER → 2020-07-28 13:15 | Outpatient (CLI) | payer OTHER, SELFPAY ==
--- NOTE | 2020-07-28 13:30 | XR_ITS ---
PROCEDURE: XR CHEST 2V CLINICAL HISTORY: PERIPHERAL EDEMA COMPARISON: CR CXR2 CHEST-AP VIEW ONLY from 11/07/2016 CR CXR1VP XR chest portable from 07/30/2018 CR Chest from 04/18/2019 CR XR CHEST 2V from 10/22/2019 FINDINGS: There is mild cardiomegaly without failure. There is a prominent pericardial fat pad on the left. Increased density overlies the left aspect of the heart with silhouetting out of the heart border consistent with left-sided pneumonia. Some of this may be due to the prominent pericardial fat pad. This however has developed since 10/22/2019. There may be a small left pleural effusion. There are old right rib fractures with mild pleural thickening. IMPRESSION: Cardiomegaly with increasing density overlying the left heart border and left lung base consistent with left-sided pneumonia with possible small effusion Dictated by: Brennon Little MD 07/28/2020 17:37 Brennon Little MD in [place] 07/28/2020 17:37
[2020-07-28 15:16] LABS: Basophils % 0.5 % (0.1-2.0); Eosinophils # 0.2 K/mm3 (0.0-0.4); Eosinophils % 1.8 % (0.1-12.0); Hematocrit 37.3 % (42.0-52.0); Hemoglobin 12.9 g/dL (14.1-18.0); Lymphocytes % 25.1 % (10-50); Mean Corpuscular HGB Conc 34.6 g/dL (31.8-35.4); Mean Corpuscular Hemoglobin 37.2 pg (27.0-31.2); Mean Corpuscular Volume 107.4 fl (80-94); Mean Platelet Volume 7.8 fl (7.4-10.4); Monocytes # 0.3 K/mm3 (0.1-1.0); Monocytes % 4.3 % (1.7-9.3); Neutrophils # 5.4 K/mm3 (1.8-7.8); Neutrophils % 68.2 % (37.0-80.0); Platelet Count 198 K/mm3 (142-424); Red Blood Count 3.47 M/mm3 (4.60-6.20); Red Cell Distribution Width 15.9 % (11.5-17.5); White Blood Count 7.9 K/mm3 (4.8-10.8)
[2020-07-28 15:48] LABS: Chloride 90 mmol/L (98-107); Potassium 3.1 mmoL/L (3.5-5.1); Sodium 139 mmol/L (136-145)
[2020-07-28 15:51] LABS: Alanine Aminotransferase 37 U/L (12-78); Albumin Level 3.4 g/dl (3.5-5.0); Albumin/Globulin Ratio 1.2 (1.1-1.8); Alkaline Phosphatase 140 U/L (38-126); Anion Gap 12.1 mEq/L (5-15); Aspartate Amino Transferase 78 U/L (17-59); Bilirubin,Total 1.8 mg/dl (0.2-1.3); Blood Urea Nitrogen 14 mg/dl (9-20); Estimated Glomerular Filt Rate 77 ml/min (>60); GFR (African American) 93 ML/MIN (>60); Globulin 2.8 g/dL (1.3-3.2); Total Protein,Serum 6.2 g/dl (6.3-8.2)
[2020-07-28 15:52] LABS: Calcium 8.7 mg/dl (8.4-10.2); Glucose 115 mg/dl (74-100)
[2020-07-28 15:56] LABS: Carbon Dioxide 40 mmol/L (22.0-30.0)
[2020-07-28 16:00] LABS: NT Pro Brain Natriuretic Pep. 360 pg/mL (0-125)
== END ==
PROVIDERS: PCP Internal Medicine Adolescent Medicine; Visit Provider Internal Medicine Adolescent Medicine
DX: R60.9 Edema, unspecified (principal); I50.30 Unspecified diastolic (congestive) heart failure
CPT/HCPCS: 36415; 71046; 80053; 83880; 85025

== ENCOUNTER → 2020-08-11 13:58 | Outpatient (CLI) | payer OTHER, SELFPAY ==
[2020-08-11 14:30] LABS: Basophils # 0.1 K/mm3 (0-0.2); Basophils % 0.7 % (0.1-2.0); Eosinophils # 0.2 K/mm3 (0.0-0.4); Hematocrit 38.1 % (42.0-52.0); Hemoglobin 12.7 g/dL (14.1-18.0); Lymphocytes # 1.7 K/mm3 (0.7-4.5); Mean Corpuscular HGB Conc 33.5 g/dL (31.8-35.4); Mean Corpuscular Hemoglobin 37.5 pg (27.0-31.2); Mean Platelet Volume 8.6 fl (7.4-10.4); Monocytes # 0.5 K/mm3 (0.1-1.0); Neutrophils % 67.3 % (37.0-80.0); Platelet Count 227 K/mm3 (142-424); Red Cell Distribution Width 16.5 % (11.5-17.5); White Blood Count 7.5 K/mm3 (4.8-10.8)
[2020-08-11 15:01] LABS: Chloride 91 mmol/L (98-107); Sodium 139 mmol/L (136-145)
[2020-08-11 15:02] LABS: Potassium 3.7 mmoL/L (3.5-5.1)
[2020-08-11 15:04] LABS: Alanine Aminotransferase 48 U/L (12-78); Albumin Level 3.5 g/dl (3.5-5.0); Albumin/Globulin Ratio 1.2 (1.1-1.8); Alkaline Phosphatase 136 U/L (38-126); Anion Gap 16.7 mEq/L (5-15); Aspartate Amino Transferase 96 U/L (17-59); Bilirubin,Total 1.7 mg/dl (0.2-1.3); Blood Urea Nitrogen 6 mg/dl (9-20); Carbon Dioxide 35 mmol/L (22.0-30.0); Estimated Glomerular Filt Rate 77 ml/min (>60); GFR (African American) 93 ML/MIN (>60); Globulin 2.9 g/dL (1.3-3.2); Glucose 132 mg/dl (74-100); Total Protein,Serum 6.4 g/dl (6.3-8.2)
[2020-08-12 09:32] LABS: Magnesium 0.8 mg/dl (1.6-2.3)
== END ==
PROVIDERS: Visit Provider Internal Medicine Adolescent Medicine
DX: R06.09 Other forms of dyspnea (principal); R25.2 Cramp and spasm
CPT/HCPCS: 36415; 80053; 83735; 85025

== ENCOUNTER → 2020-08-17 10:11 | Outpatient (CLI) | payer OTHER, SELFPAY ==
--- NOTE | 2020-08-17 10:16 | CA_ITS ---
APPROVED REPORT EXAM: Comprehensive 2D, Doppler, and color-flow Echocardiogram Fruit Cutter: Buffy Hernandez RT(R) Ht: 6 ft 1 in Wt: 235lbs BSA: 2.30 BP: 160/90 mmHg Indications: palpitations, fatigue, edema, HTN, SOB, PRIEST, obesity, nausea 2D Dimensions LVOT 2.11 cm (M/F) 1.5-2.5 M-Mode Dimensions RVDd 3.55 cm (0.9-2.6) LVDd 4.96 cm (3.5-5.7) LVDs 3.79 cm (3.5-5.7) IVSd 0.93 cm (0.6-1.1) PWd 0.73 cm (0.6-1.1) EF (Teich) 46.90% FS 23.60% EDV (Teich) 116.10 mL ESV (Teich) 61.60 mL LV Diastology E/A Ratio 1.41 Mitral Valve MV A Velocity 63.00 (40-130 cm/s) Left Ventricle Left atrium is mildly enlarged, left ventricle is normal size, mild concentric left ventricular hypertrophy, visually estimated ejection fraction 55% with no regional wall motion abnormality, grade 1 diastolic dysfunction seen without tissue Doppler evidence of raise left atrial pressure. Right Ventricle Right atrium and right ventricular mildly enlarged with normal contractility. Aortic Valve Aortic valve is minimally thickened and fibrosed, there is no aortic stenosis or aortic insufficiency. Mitral Valve Mitral valve is grossly normal, there is mild mitral regurgitation. Tricuspid Valve Tricuspid valve is grossly normal, there is mild tricuspid regurgitation, tricuspid regurgitation jet velocity is inadequate for calculation of the right ventricular systolic pressure. Pulmonic Valve Pulmonic valve is poorly visualized. Great Vessels Aortic root is normal size. Pericardium No significant pericardial effusion noted. Conclusion 1. Mild biatrial enlargement, normal left ventricular size, mild concentric left ventricular hypertrophy, visually estimated ejection fraction 55% with no regional wall motion abnormality, grade 1 diastolic dysfunction seen without tissue Doppler evidence of raise left atrial pressure. 2. Mildly enlarged right ventricle with normal contractility. 3. Mild mitral and tricuspid regurgitation. 4. No significant pericardial effusion noted. Electronically signed by : Roger Whitaker, 08/17/2020 17:12:29
== END ==
PROVIDERS: PCP Internal Medicine Adolescent Medicine; Visit Provider Internal Medicine Adolescent Medicine
DX: R06.00 Dyspnea, unspecified (principal); R94.31 Abnormal electrocardiogram [ECG] [EKG]
CPT/HCPCS: 93306

== ENCOUNTER → 2020-08-27 16:40 | Outpatient (CLI) | payer OTHER, SELFPAY ==
[2020-08-27 17:18] LABS: Activated Partial Thrombo Time 26.2 seconds (23.6-34.0); INR 1.21 (0.9-1.1); Prothrombin Time 13.2 seconds (9.4-11.8)
[2020-08-27 18:12] LABS: Chloride 90 mmol/L (98-107); Potassium 3.2 mmoL/L (3.5-5.1); Sodium 135 mmol/L (136-145)
[2020-08-27 18:14] LABS: Alanine Aminotransferase 70 U/L (12-78); Alkaline Phosphatase 165 U/L (38-126); Aspartate Amino Transferase 204 U/L (17-59); Blood Urea Nitrogen 18 mg/dl (9-20); Estimated Glomerular Filt Rate 77 ml/min (>60); GFR (African American) 93 ML/MIN (>60)
[2020-08-27 18:15] LABS: Albumin Level 3.8 g/dl (3.5-5.0); Albumin/Globulin Ratio 1.4 (1.1-1.8); Anion Gap 17.2 mEq/L (5-15); Calcium 9.4 mg/dl (8.4-10.2); Carbon Dioxide 31 mmol/L (22.0-30.0); Globulin 2.8 g/dL (1.3-3.2); Glucose 117 mg/dl (74-100); Total Protein,Serum 6.6 g/dl (6.3-8.2)
--- NOTE | 2020-08-27 18:42 | CT_ITS ---
Procedure: CT ABDOMEN PELVIS W CON Referring Doctor: Nicanor Main Patient Age:59Y CLINICAL INDICATION: ABD PAIN distension. Weakness increasing dyspnea. The 2 history of rectal cancer 2.5 years ago/2017 had radiation treatments and chemotherapy. Hernia repair x3. History of blood clots on blood thinners COMPARISON: CT ABDPELW CT ABD PELVIS W/ CONTRAST from 05/08/2017 TECHNIQUE: IV contrast utilized: 75 cc Optiray 350 IV contrast. Enteric contrast: Diluted Gastrografin with scanning performed 2.5 hours thereafter who the the the Helical axial images obtained with sagittal and coronal reformats. All CT scans at the facility use one or more dose reduction, viz: automated exposure control, ma/kV adjustment per patient size (including targeted exams where dose is matched to indication, i.e. head), or iterative reconstruction technique. FINDINGS: Lower thorax: No acute finding ABDOMEN: Liver: When compared to 2017 CT liver is larger measure up to 22 cm length with mild diffuse fatty changes. Also note increase the intra-abdominal fat suggesting the patient has gained weight in the interval Gallbladder: Nondistended. No radio opaque stones. The common duct normal caliber Pancreas: No significant change. No masses but no inflammation. Stable small focal calcification in the region of head of pancreas/ duodenum, likely near the near the ampulla of was present 2017 with no significant change but Spleen: unremarkable normal modest size Adrenals: unremarkable tract -------- Kidneys/ureters: Unremarkable no urinary tract calculi nor obstruction. Satisfactory enhancement bilaterally. Mild stable. Stranding about the kidneys reflecting minor chronic changes. Ureters unremarkable PELVIS: Urinary bladder. No stones or masses of but there is suggestion mild diffuse wall thickening at the urinary bladder. Prostate mildly enlarged measuring just over 5 cm transverse. GI tract . Suggestion of small sliding hiatal hernia on with borderline/mild thickening distal esophagus which could reflect reflux correlation required. Stomach unremarkable ll Small bowel normal caliber and appearance. However even after 2.5 hours the oral contrast has only reached the transverse colon No evidence of appendicitis: Appendix normal as seen axial slice 81 Large bowel. Minimal solid stool is at the transverse and left colon through to the rectum. The prominent fatty changes at ileocecal valve most likely account for the appearance and relative narrowing of colon in this region but patient warrants regular colonoscopy with history. Liquid stool throughout the right colon most likely reflects diluted Gastrografin cathartic effect Rectum upper normal wall thickness but no obvious lesions by CT and perirectal fat regions appear satisfactory . Interval repair of the large bilateral inguinal hernias Peritoneum: No abnormal fluid collections. No obvious inflammatory changes. No free air. Lymph nodes: No enlarged lymph nodes apparent. No retroperitoneal adenopathy nor pelvic adenopathy Vasculature: No evidence of abdominal aortic aneurysm. No retroperitoneal findings. Bones: . old compression fracture L4 unchanged since 2017. Interval compression fracture L2-superior endplate compression with marked superior endplate concavity at L2 vertebra Less pronounced loss of height and superior endplate concavity also noted at T12 and T11 vertebra; with the mild wedge compression fracture at T12 most notable here at the lower T-spine level. Other observations note generous facet hypertrophy throughout the L-spine along with suspect generous central disc bulge at L1/2.. No destructive lesions I
[2020-08-29 21:28] LABS: CEA 3.2 ng/mL (0.0-4.7)
== END ==
PROVIDERS: Visit Provider Internal Medicine Adolescent Medicine
DX: R14.0 Abdominal distension (gaseous) (principal)
CPT/HCPCS: 36415; 74177; 80053; 82378; 85610; 85730; Q9967

== ENCOUNTER → 2020-10-25 09:33 | Outpatient (CLI) | payer OTHER, SELFPAY ==
[2020-10-25 10:18] LABS: Chloride 101 mmol/L (98-107); Potassium 4.3 mmoL/L (3.5-5.1); Sodium 136 mmol/L (136-145)
[2020-10-25 10:20] LABS: Blood Urea Nitrogen 23 mg/dl (9-20); Estimated Glomerular Filt Rate 69 ml/min (>60); GFR (African American) 83 ML/MIN (>60)
[2020-10-25 10:21] LABS: Alanine Aminotransferase 50 U/L (12-78); Albumin Level 4.2 g/dl (3.5-5.0); Alkaline Phosphatase 198 U/L (38-126); Anion Gap 16.3 mEq/L (5-15); Aspartate Amino Transferase 94 U/L (17-59); Bilirubin,Direct 0.4 mg/dl (0.0-0.4); Bilirubin,Indirect 0.5 mg/dL (0.0-0.9); Bilirubin,Total 0.9 mg/dl (0.2-1.3); Bilirubin,Unconjugated 0.5 mg/dL (0.0-1.1); Calcium 9.7 mg/dl (8.4-10.2); Carbon Dioxide 23 mmol/L (22.0-30.0); Chol/HDL Ratio 5.6 (1-3.5); Cholesterol 274 mg/dl (140-200); Glucose 144 mg/dl (74-100); HDL Cholesterol 49 mg/dl (40-60); Total Protein,Serum 7.6 g/dl (6.3-8.2); Triglycerides 174 mg/dl (30-150); VLDL Cholesterol 35 mg/dL (0-40)
[2020-10-25 10:32] LABS: Direct LDL Cholesterol 190.39 mg/dL (100-129)
--- NOTE | 2020-10-25 10:33 | CT_ITS ---
PROCEDURE: CT ABDOMEN PELVIS W CON CLINICAL INDICATION: follow up, malignant rectal cancer no treatments at this time 75ml iso 370 prior 08/27/20 COMPARISON: CT ABDPELW CT ABD PELVIS W/ CONTRAST from 05/08/[address] ABDOMEN PELVIS W CON from 08/27/2020 TECHNIQUE: IV Contrast: 75ML Isovue 370 Oral Contrast None Axial images obtained with sagittal and coronal reformats. All CT scans at the facility use one or more dose reduction, viz: automated exposure control, ma/kV adjustment per patient size (including targeted exams where dose is matched to indication, i.e. head), or iterative reconstruction technique. FINDINGS: There is mild fatty liver. There is a vague area decreased attenuation rounded in nature just lateral to the gallbladder in the right hepatic lobe anteriorly. This area measures approximately 3 cm. The spleen and adrenal glands and pancreas have an unremarkable appearance. There is a small focus of calcification in the pancreatic head nonspecific. Kidneys have an unremarkable appearance. There is a small hiatal hernia No abdominal or pelvic adenopathy. No evidence of appendicitis. There is a small umbilical hernia which contains fat. No intestinal obstruction or free air. There are few scattered air-fluid levels within the small bowel in the mid abdominal region nonspecific. There are few scattered small retroperitoneal lymph nodes not significantly changed. There is mild concentric thickening of the rectum. The presacral region and perirectal area have an unremarkable appearance. No enlarged pelvic lymph nodes are apparent. There are few colonic diverticula but no evidence of diverticulitis. Prostate gland is enlarged. There is mild concentric thickening of the urinary bladder wall nonspecific. There is some fluid density in the region of the left inguinal canal. Previously there was a prominent inguinal hernia on 05/08/2017 on both sides which is no longer apparent. Stable wedge compression changes involve L4-L2 T12 and T11. Small sclerotic focus involves the right femoral head anteriorly. This was not present on a older exam of 05/08/2017 IMPRESSION: 1. There is fatty infiltration of the liver. There is an ill-defined 3 cm area of more decreased attenuation in the right hepatic lobe anteriorly within segment 6. While this could be due to an area of more prominent fatty infiltration, 1 cannot exclude underlying liver lesion such as a metastatic focus. MRI of the liver with hemangioma protocol and with in and out of phase imaging suggested for further evaluation. 2. There is a small sclerotic focus in the right femoral head which is not readily apparent on an older exam. This is nonspecific. Small bone island is considered. Small blastic lesion is not excluded and follow-up is suggested. Dictated by: Brennon Little MD 10/26/2020 09:56 Brennon Little MD in [place] 10/26/2020 09:56
--- NOTE | 2020-10-25 10:34 | CT_ITS ---
PROCEDURE: CT CHEST W CON CLINCAL INDICATION: follow up, malignant rectal cancer COMPARISON: CT [facility] CT CHEST W/ CONTRAST from 05/08/[address] ABDOMEN PELVIS W CON from 08/27/2020 TECHNIQUE: IV Contrast: 75ml Isovue 370 Axial images obtained with sagittal and coronal reformats. All CT scans at the facility use one or more dose reduction, viz: automated exposure control, ma/kV adjustment per patient size (including targeted exams where dose is matched to indication, i.e. head), or iterative reconstruction technique. FINDINGS: HEART AND MEDIASTINAL STRUCTURES: No mediastinal or hilar mass or adenopathy. There are few small mediastinal lymph nodes which are not significantly changed. There is a small hypodensity in the right lobe of the thyroid gland less than 1 cm and may be due to small cyst. There is a small hiatal hernia. LUNGS AND PLEURAL SPACES: There are few scattered areas of scarring. Calcified granuloma is present in the left lower lobe. No suspicious nodules are evident. No effusions or infiltrates. BONY STRUCTURES: There are old right-sided rib fractures. UPPER ABDOMEN: See abdomen report ADDITIONAL FINDINGS: No other significant abnormalities. IMPRESSION: Essentially unremarkable CT of the chest with no convincing evidence of metastatic disease. Dictated by: Brennon Little MD 10/26/2020 09:45 Brennon Little MD in [place] 10/26/2020 09:45
[2020-10-25 10:38] LABS: Free T4 (Free Thyroxine) 1.36 ng/dl (0.78-2.19)
[2020-10-25 10:55] LABS: Thyroid Stimulating Hormone 3.81 uIU/mL (0.465-4.68)
[2020-10-25 11:38] LABS: Prostate Specific Ag Screen 0.9 ng/ml (0.0-4.0)
== END ==
PROVIDERS: Nurse Practitioner Family; PCP Internal Medicine Adolescent Medicine; Visit Provider Surgery
DX: C20 Malignant neoplasm of rectum (principal); I73.9 Peripheral vascular disease, unspecified; R00.2 Palpitations; R00.0 Tachycardia, unspecified; R06.00 Dyspnea, unspecified; K21.9 Gastro-esophageal reflux disease without esophagitis; R53.83 Other fatigue; R94.31 Abnormal electrocardiogram [ECG] [EKG]; Z86.711 Personal history of pulmonary embolism; Z86.718 Personal history of other venous thrombosis and embolism
CPT/HCPCS: 36415; 71260; 74177; 80048; 80061; 80076; 84439; 84443; G0103; Q9967

== ENCOUNTER → 2020-10-26 06:20 | Outpatient (CLI) | payer OTHER, SELFPAY ==
--- NOTE | 2020-10-26 06:21 | CA_ITS ---
APPROVED REPORT Exam: Pharmacologic Technologist: Nahomy Rosenberg Ht: 6 ft 1 in Wt: 231 lbs BSA: 2.29 m2 HR: 100 bpm BP: 135/94 mmHg Indications: Chest pain, Claudication Medical History Medications: Lisinopril,,,,, Furosemide (LASIX),,,,, Vitamin D3,,,,, Carvedilol,,,,, Magnesium,,,,, Quetiapine,,,,, Apixaban,,,,, Potassium,,,,, Stress Test Details Test: LEXISCAN HR Resting HR: 98 bpm Max Heart Rate (APMHR): 162 bpm Max HR Achieved: 122 bpm Target HR (85% APMHR): 137 bpm % of APMHR: 75 Recovery HR: 103 bpm BP Resting BP: 135/94 mmHg Max BP: 144/94 mmHg Recovery BP: 132.0/94.0 mmHg ECG Clinical Exercise duration: 04:00 min Highest Stage Achieved: Exercise capacity: 1.0 METs Stress ECG Conclusion Resting EKG: Sinus tachycardia, low voltage QRS, incomplete RBBB. Symptoms: Mild shortness of air, malaise, chest tightness. Arrhythmias/Ectopy: None ST-T Changes: No significant changes Concuslusion: Unremarkable Lexiscan stress. Myoview images reported separately. Electronically signed by : Roger Whitaker, 10/27/2020 06:33:48
--- NOTE | 2020-10-26 06:21 | NM_ITS ---
APPROVED REPORT Exam: Nuclear Stress Test Indication: Chest pain, SOB, Palpitations, Abnormal EKG, HTN, Family history Patient Location: Outpatient Stress Tech: Nahomy Rosenberg MS Tech:Milly Costello, ARRT, RT (R)(N) Ht: 6 ft 1 in Wt: 220 lbs HR: 100 bpm BP: 135/94 mmHg BSA: 2.24 m2 BMI: 29.0 History: Chest pain, SOB, Palpitations, Abnormal EKG, HTN, Family history Procedure: Patient received a 0.4 mg of intravenous Lexiscan, resting heart rate 100 bpm, resting blood pressure 135/94 mmHg, with Lexiscan maximum heart rate achived was 121 bpm which is Less than 85 % of the maximum predicted heart rate and blood pressure was 129/94 mmHg. Electrocardiogram Resting electrocardiogram showed sinus rhythm, with Lexiscan there is less than 1.[address] segment depression noted from the baseline EKG. The EKG portion of the Lexiscan is nondiagnostic. Cardiac Stress and Resting SPECT Images: Cardiac Stress and Resting SPECT images were obtained using technetium 99m Myoview 32.3 mCi stress and 10.51 mCi at rest. Gated SPECT for analysis of segmental wall motion and calculation of the ejection fraction is also done. Cardiac stress and resting SPECT images show uniform myocardial activity without segmental perfusion abnormality, computer derived ejection fraction is over 50% with no regional wall motion abnormality, right ventricle is normal size and contractility. Conclusion: 1. The EKG portion of the Lexiscan Myoview is nondiagnostic. 2. No scintigraphic evidence of reversible ischemia seen, computer derived ejection fraction is over 50% with no regional wall motion abnormality, right ventricle is normal size and contractility. 3. Normal Lexiscan Myoview study. Electronically signed by : Roger Whitaker, 10/27/2020 06:40:06
--- NOTE | 2020-10-26 06:21 | US_ITS ---
APPROVED REPORT Exam Type: Ankle to Brachial Index Mechanical Facilities Technician: RT Sparkle(R) Indications Claudication: Bilaterally Rest Pain: Bilaterally Risk Factors Hypertension Pressures/Indices Right Indices Left Indices Brachial 151.00 mmHg Brachial 154.00 mmHg Low Thigh 180.00 mmHg 1.17 Low Thigh 184.00 mmHg 1.19 Calf 186.00 mmHg 1.21 Calf 185.00 mmHg 1.20 Ankle(PT) 193.00 mmHg 1.25 Ankle(PT) 195.00 mmHg 1.27 Ankle(DP) 201.00 mmHg 1.31 Ankle(DP) 186.00 mmHg 1.21 Digit 184.00 mmHg 1.19 Digit 156.00 mmHg 1.01 Findings RT PATRICIA=1.3 LT PATRICIA=1.3 RT TBI=1.2 LT TBI=1.0 Normal pulses Normal waveforms Conclusion RT PATRICIA=1.3 LT PATRICIA=1.3 RT TBI=1.2 LT TBI=1.0 Normal pulses Normal waveforms Electronically signed by : Brennon Little MD 10/26/2020 17:46:21
--- NOTE | 2020-10-26 08:13 | HMH.ITSHM ---
Current Home Medications as stated by this patient Andres Quinones or sales training representative. []QUETIAPINE POTASSIUM PANTOPRAZOLE MAGNESIUM LISINOPRIL FUROSEMIDE VITAMIN D3 CARVEDILOL APIXABAN
== END ==
PROVIDERS: PCP Internal Medicine Adolescent Medicine; Visit Provider Nurse Practitioner Family
DX: R07.89 Other chest pain (principal); R06.00 Dyspnea, unspecified; R00.0 Tachycardia, unspecified; R00.2 Palpitations; R94.31 Abnormal electrocardiogram [ECG] [EKG]; I73.9 Peripheral vascular disease, unspecified; K21.9 Gastro-esophageal reflux disease without esophagitis; R53.83 Other fatigue; Z86.711 Personal history of pulmonary embolism; Z86.718 Personal history of other venous thrombosis and embolism
CPT/HCPCS: 78452; 93017; 93923; A9502; J2785

== ENCOUNTER → 2020-11-03 13:10 | Outpatient (CLI) | payer OTHER, SELFPAY ==
[2020-11-03 14:42] LABS: Chloride 104 mmol/L (98-107); Potassium 4.6 mmoL/L (3.5-5.1); Sodium 141 mmol/L (136-145)
[2020-11-03 14:45] LABS: Anion Gap 13.6 mEq/L (5-15); Blood Urea Nitrogen 24 mg/dl (9-20); Calcium 10.1 mg/dl (8.4-10.2); Carbon Dioxide 28 mmol/L (22.0-30.0); Estimated Glomerular Filt Rate 33 ml/min (>60); GFR (African American) 39 ML/MIN (>60); Glucose 156 mg/dl (74-100)
[2020-11-03 14:53] LABS: NT Pro Brain Natriuretic Pep. 255 pg/mL (0-125)
== END ==
PROVIDERS: Visit Provider Physician Assistant
DX: R06.00 Dyspnea, unspecified (principal); Z79.899 Other long term (current) drug therapy
CPT/HCPCS: 36415; 80048; 83880

== ENCOUNTER → 2020-11-15 15:38 | Outpatient (POV) | payer OTHER, SELFPAY ==
[2020-11-15 17:59] LABS: Basophils # 0.1 K/mm3 (0-0.2); Basophils % 0.8 % (0.1-2.0); Eosinophils # 0.2 K/mm3 (0.0-0.4); Hematocrit 40.5 % (42.0-52.0); Lymphocytes # 1.1 K/mm3 (0.7-4.5); Lymphocytes % 18.8 % (10-50); Mean Corpuscular HGB Conc 32.2 g/dL (31.8-35.4); Mean Corpuscular Hemoglobin 34.1 pg (27.0-31.2); Mean Corpuscular Volume 106.1 fl (80-94); Mean Platelet Volume 8.5 fl (7.4-10.4); Monocytes # 0.4 K/mm3 (0.1-1.0); Neutrophils # 4.2 K/mm3 (1.8-7.8); Neutrophils % 70.4 % (37.0-80.0); Platelet Count 187 K/mm3 (142-424); Red Blood Count 3.81 M/mm3 (4.60-6.20); Red Cell Distribution Width 16.2 % (11.5-17.5)
[2020-11-15 18:08] LABS: INR 1.13 (0.9-1.1); Prothrombin Time 12.4 seconds (9.4-11.8)
[2020-11-15 19:03] LABS: Chloride 105 mmol/L (98-107)
[2020-11-15 19:04] LABS: Potassium 4.4 mmoL/L (3.5-5.1); Sodium 141 mmol/L (136-145)
[2020-11-15 19:06] LABS: Alanine Aminotransferase 55 U/L (12-78); Alkaline Phosphatase 167 U/L (38-126); Aspartate Amino Transferase 110 U/L (17-59); Bilirubin,Total 0.8 mg/dl (0.2-1.3); Blood Urea Nitrogen 17 mg/dl (9-20); Estimated Glomerular Filt Rate 62 ml/min (>60); GFR (African American) 75 ML/MIN (>60)
[2020-11-15 19:07] LABS: Albumin Level 3.9 g/dl (3.5-5.0); Albumin/Globulin Ratio 1.2 (1.1-1.8); Anion Gap 11.4 mEq/L (5-15); Calcium 9.7 mg/dl (8.4-10.2); Carbon Dioxide 29 mmol/L (22.0-30.0); Globulin 3.2 g/dL (1.3-3.2); Glucose 117 mg/dl (74-100); Iron 58 ug/dL (49-181); Total Protein,Serum 7.1 g/dl (6.3-8.2)
[2020-11-15 19:16] LABS: Total Iron Binding Capacity 289 ug/dL (261-462)
[2020-11-15 19:42] LABS: Ferritin 408 ng/ml (17.9-464)
[2020-11-17 08:15] LABS: Ceruloplasmin 25.6 mg/dL (16.0-31.0); Hep A Ab, IgM Negative (Negative); Hepatitis B Core Antibody IgM Negative (Negative); Hepatitis B Surface Antigen Negative (Negative); Immunoglobulin A, Qn 195 mg/dL (90-386); Immunoglobulin G, Qn 1084 mg/dL (603-1613)
[2020-11-17 09:50] LABS: Hepatitis C Antibody 0.1 s/co ratio (0.0-0.9); Immunoglobulin M, Qn 109 mg/dL (20-172)
[2020-11-17 14:16] LABS: Actin (Smooth Muscle) Antibody 9 Units (0-19); Liver-Kidney Microsomal Ab 1.4 Units (0.0-20.0); Mitochondrial (M2) Antibody <20.0 Units (0.0-20.0)
[2020-11-17 15:39] LABS: Deamidated Gliadin Abs, IgA 6 units (0-19); Deamidated Gliadin Abs, IgG 4 units (0-19); Tissue Transglutaminase IgA Ab 3 U/mL (0-3); Tissue Transglutaminase IgG Ab 8 U/mL (0-5)
[2020-11-17 23:23] LABS: Endomysial IgA Antibody Negative (Negative)
[2020-11-18 10:36] LABS: Reticulin IgA Antibody Negative titer (Neg:<1:2.5)
[2020-11-18 22:07] LABS: ALT (SGPT) P5P 55 IU/L (0-55); AST (SGOT) P5P 120 IU/L (0-40); Alpha 2-Macroglobulins, Qn 253 mg/dL (110-276); Apolipoprotein A-1 119 mg/dL (101-178); Bilirubin, Total 0.6 mg/dL (0.0-1.2); Cholesterol, Total 157 mg/dL (100-199); Fibrosis Score 0.69 (0.00-0.21); GGT 611 IU/L (0-65); Glucose 110 mg/dL (65-99); Haptoglobin 267 mg/dL (29-370); Triglycerides 157 mg/dL (0-149)
[2020-11-23 16:26] LABS: Alpha-1-Antitrypsin 198 mg/dL (101-187)
[2020-11-27 01:51] LABS: Antinuclear Antibodies (ANA) NEGATIVE
== END ==
PROVIDERS: Visit Provider Nurse Practitioner Family
DX: K70.0 Alcoholic fatty liver (principal); F10.10 Alcohol abuse, uncomplicated; R94.5 Abnormal results of liver function studies; R14.0 Abdominal distension (gaseous)
CPT/HCPCS: 36415; 80048; 80053; 80074; 81256; 82103; 82104; 82164; 82390; 82728; 82784; 83516; 83540; 83550; 85025; 85610; 86038; 86255; 86256; 86376

== ENCOUNTER → 2020-11-17 12:55 | Outpatient (CLI) | payer OTHER, SELFPAY | PROVIDERS: PCP Internal Medicine Adolescent Medicine; Visit Provider Physician Assistant | DX: G47.33 Obstructive sleep apnea (adult) (pediatric) (principal) | CPT/HCPCS: 95806 ==

== ENCOUNTER → 2020-11-18 09:26 | Outpatient (CLI) | payer OTHER, SELFPAY ==
--- NOTE | 2020-11-18 09:30 | US_ITS ---
PROCEDURE: US ABDOMEN LIMITED CLINICAL INDICATION: ALCOHOL ABUSE,FATTY LIVER,ABN LIVER FUNCTION TEST,BLOATING, COMPARISON: No exams were available for comparison FINDINGS: PANCREAS: Unremarkable. No obvious mass or abnormal fluid collection. No ductal dilatation LIVER: The liver is normal size and shows overall increased in somewhat coarsened appearing echogenicity consistent with diffuse fatty infiltration. There are no focal lesions. Flow is in the appropriate direction in the nondilated portal vein. RIGHT KIDNEY: The right kidney measures 9.7 x 4.4 by 5.5 cm and appears sonographically normal. GALLBLADDER: The gallbladder is normal in size and no definite gallstones are seen. There may be trace amount of biliary sludge. The common bile duct is normal caliber IMPRESSION: Diffuse hepatic steatosis, question trace biliary sludge but no gallstones seen Dictated by: Dr. Golden Sellers MD 11/18/2020 16:06 Dr. Golden Sellers MD in [place] 11/18/2020 16:06
== END ==
PROVIDERS: PCP Internal Medicine Adolescent Medicine; Visit Provider Nurse Practitioner Family
DX: R10.11 Right upper quadrant pain (principal); F10.10 Alcohol abuse, uncomplicated; R94.5 Abnormal results of liver function studies; R14.0 Abdominal distension (gaseous); R14.2 Eructation
CPT/HCPCS: 76705

== ENCOUNTER → 2020-11-24 12:52 | Outpatient (CLI) | payer OTHER, SELFPAY ==
[2020-11-24 14:47] LABS: Chloride 102 mmol/L (98-107); Potassium 3.7 mmoL/L (3.5-5.1); Sodium 140 mmol/L (136-145)
[2020-11-24 14:50] LABS: Anion Gap 10.7 mEq/L (5-15); Blood Urea Nitrogen 13 mg/dl (9-20); Calcium 9.4 mg/dl (8.4-10.2); Carbon Dioxide 31 mmol/L (22.0-30.0); Estimated Glomerular Filt Rate 77 ml/min (>60); GFR (African American) 93 ML/MIN (>60); Glucose 135 mg/dl (74-100)
== END ==
PROVIDERS: PCP Internal Medicine Adolescent Medicine; Visit Provider Internal Medicine Cardiovascular Disease
DX: I10 Essential (primary) hypertension (principal); R60.0 Localized edema
CPT/HCPCS: 36415; 80048

== ENCOUNTER → 2020-12-01 13:55 | Outpatient (CLI) | payer OTHER, SELFPAY ==
[2020-12-01 15:31] LABS: Anion Gap 13.2 mEq/L (5-15); Blood Urea Nitrogen 10 mg/dl (9-20); Carbon Dioxide 30 mmol/L (22.0-30.0); Chloride 103 mmol/L (98-107); Estimated Glomerular Filt Rate 87 ml/min (>60); GFR (African American) 105 ML/MIN (>60); Glucose 118 mg/dl (74-100); Potassium 4.2 mmoL/L (3.5-5.1); Sodium 142 mmol/L (136-145)
== END ==
PROVIDERS: Visit Provider Internal Medicine Cardiovascular Disease
DX: I10 Essential (primary) hypertension (principal); R60.0 Localized edema
CPT/HCPCS: 36415; 80048

== ENCOUNTER → 2020-12-08 15:15 | Outpatient (CLI) | payer OTHER, SELFPAY ==
[2020-12-08 16:12] LABS: Chloride 107 mmol/L (98-107); Potassium 4.6 mmoL/L (3.5-5.1); Sodium 142 mmol/L (136-145)
[2020-12-08 16:15] LABS: Anion Gap 14.6 mEq/L (5-15); Blood Urea Nitrogen 14 mg/dl (9-20); Calcium 10.6 mg/dl (8.4-10.2); Carbon Dioxide 25 mmol/L (22.0-30.0); Estimated Glomerular Filt Rate 87 ml/min (>60); GFR (African American) 105 ML/MIN (>60); Glucose 126 mg/dl (74-100)
== END ==
PROVIDERS: Visit Provider Internal Medicine Cardiovascular Disease
DX: I10 Essential (primary) hypertension (principal); R60.0 Localized edema
CPT/HCPCS: 36415; 80048

== ENCOUNTER → 2020-12-15 17:02 | Outpatient (CLI) | payer OTHER, SELFPAY ==
[2020-12-15 17:49] LABS: Chloride 106 mmol/L (98-107)
[2020-12-15 17:50] LABS: Potassium 4.4 mmoL/L (3.5-5.1); Sodium 142 mmol/L (136-145)
[2020-12-15 17:52] LABS: Blood Urea Nitrogen 15 mg/dl (9-20); Estimated Glomerular Filt Rate 87 ml/min (>60); GFR (African American) 105 ML/MIN (>60)
[2020-12-15 17:53] LABS: Anion Gap 15.4 mEq/L (5-15); Carbon Dioxide 25 mmol/L (22.0-30.0); Glucose 119 mg/dl (74-100)
[2020-12-15 18:28] LABS: Ferritin 131 ng/ml (17.9-464)
== END ==
PROVIDERS: Internal Medicine Cardiovascular Disease; Visit Provider Nurse Practitioner Family
DX: E83.10 Disorder of iron metabolism, unspecified (principal); G25.81 Restless legs syndrome
CPT/HCPCS: 36415; 80048; 82728

== ENCOUNTER → 2020-12-23 12:15 | Outpatient (CLI) | payer OTHER, SELFPAY ==
[2020-12-23 13:25] LABS: Anion Gap 17.9 mEq/L (5-15); Blood Urea Nitrogen 10 mg/dl (9-20); Calcium 9.9 mg/dl (8.4-10.2); Carbon Dioxide 22 mmol/L (22.0-30.0); Chloride 108 mmol/L (98-107); Estimated Glomerular Filt Rate 99 ml/min (>60); GFR (African American) 120 ML/MIN (>60); Glucose 190 mg/dl (74-100); Potassium 3.9 mmoL/L (3.5-5.1); Sodium 144 mmol/L (136-145)
== END ==
PROVIDERS: Visit Provider Internal Medicine Cardiovascular Disease
DX: I10 Essential (primary) hypertension (principal); E78.5 Hyperlipidemia, unspecified
CPT/HCPCS: 36415; 80048

== ENCOUNTER → 2020-12-29 14:18 | Outpatient (CLI) | payer OTHER, SELFPAY ==
[2020-12-29 19:11] LABS: Anion Gap 12.1 mEq/L (5-15); Blood Urea Nitrogen 13 mg/dl (9-20); Calcium 9.7 mg/dl (8.4-10.2); Carbon Dioxide 28 mmol/L (22.0-30.0); Chloride 108 mmol/L (98-107); Estimated Glomerular Filt Rate 87 ml/min (>60); GFR (African American) 105 ML/MIN (>60); Glucose 127 mg/dl (74-100); Potassium 4.1 mmoL/L (3.5-5.1); Sodium 144 mmol/L (136-145)
== END ==
PROVIDERS: Visit Provider Internal Medicine Cardiovascular Disease
DX: I10 Essential (primary) hypertension (principal); E78.5 Hyperlipidemia, unspecified
CPT/HCPCS: 36415; 80048

== ENCOUNTER → 2021-01-05 13:39 | Outpatient (CLI) | payer OTHER, SELFPAY ==
[2021-01-05 14:35] LABS: Chloride 106 mmol/L (98-107)
[2021-01-05 14:36] LABS: Potassium 3.6 mmoL/L (3.5-5.1); Sodium 143 mmol/L (136-145)
[2021-01-05 14:39] LABS: Anion Gap 11.6 mEq/L (5-15); Blood Urea Nitrogen 11 mg/dl (9-20); Calcium 10.1 mg/dl (8.4-10.2); Carbon Dioxide 29 mmol/L (22.0-30.0); Estimated Glomerular Filt Rate 77 ml/min (>60); GFR (African American) 93 ML/MIN (>60); Glucose 153 mg/dl (74-100)
== END ==
PROVIDERS: Visit Provider Internal Medicine Cardiovascular Disease
DX: I10 Essential (primary) hypertension (principal)
CPT/HCPCS: 36415; 80048

== ENCOUNTER → 2021-01-26 13:07 | Outpatient (CLI) | payer OTHER, SELFPAY ==
[2021-01-26 17:39] LABS: Hemoglobin A1C 6.4 % (4.0-6.0)
[2021-01-26 21:14] LABS: Vitamin B12 273 pg/mL (239-931)
[2021-01-26 21:15] LABS: Folate 7.37 ng/mL
[2021-01-31 15:24] LABS: Vitamin B1 123.7 nmol/L (66.5-200.0)
== END ==
PROVIDERS: Visit Provider Specialist
DX: R73.9 Hyperglycemia, unspecified (principal); R20.0 Anesthesia of skin; R20.2 Paresthesia of skin; Z92.21 Personal history of antineoplastic chemotherapy
CPT/HCPCS: 36415; 82607; 82746; 83036; 84425

== ENCOUNTER → 2021-02-21 11:15 | Outpatient (POV) | payer OTHER, SELFPAY | PROVIDERS: Visit Provider Nurse Practitioner Family | DX: Z00.00 Encounter for general adult medical examination without abnormal findings (principal) ==

== ENCOUNTER → 2021-03-14 11:19 | Outpatient (CLI) | payer OTHER, SELFPAY ==
[2021-03-14 12:46] LABS: Chloride 103 mmol/L (98-107); Potassium 4.2 mmoL/L (3.5-5.1); Sodium 138 mmol/L (136-145)
[2021-03-14 12:49] LABS: Alanine Aminotransferase 106 U/L (12-78); Albumin/Globulin Ratio 1.5 (1.1-1.8); Alkaline Phosphatase 226 U/L (38-126); Anion Gap 17.2 mEq/L (5-15); Aspartate Amino Transferase 144 U/L (17-59); Bilirubin,Total 0.6 mg/dl (0.2-1.3); Blood Urea Nitrogen 17 mg/dl (9-20); Calcium 9.5 mg/dl (8.4-10.2); Carbon Dioxide 22 mmol/L (22.0-30.0); Chol/HDL Ratio 3.1 (1-3.5); Cholesterol 122 mg/dl (140-200); Estimated Glomerular Filt Rate 62 ml/min (>60); GFR (African American) 75 ML/MIN (>60); Globulin 2.7 g/dL (1.3-3.2); Glucose 134 mg/dl (74-100); HDL Cholesterol 39 mg/dl (40-60); Total Protein,Serum 6.7 g/dl (6.3-8.2); Triglycerides 156 mg/dl (30-150); VLDL Cholesterol 31 mg/dL (0-40)
[2021-03-14 13:00] LABS: Direct LDL Cholesterol 54.11 mg/dL (100-129)
== END ==
PROVIDERS: Visit Provider Internal Medicine Adolescent Medicine
DX: E78.01 Familial hypercholesterolemia (principal)
CPT/HCPCS: 36415; 80053; 80061

== ENCOUNTER → 2021-04-11 12:29 | Outpatient (CLI) | payer OTHER, SELFPAY ==
[2021-04-11 13:28] LABS: Anion Gap 14.5 mEq/L (5-15); Blood Urea Nitrogen 24 mg/dl (9-20); Calcium 10.1 mg/dl (8.4-10.2); Carbon Dioxide 29 mmol/L (22.0-30.0); Chloride 102 mmol/L (98-107); Estimated Glomerular Filt Rate 69 ml/min (>60); GFR (African American) 83 ML/MIN (>60); Glucose 113 mg/dl (74-100); Potassium 4.5 mmoL/L (3.5-5.1); Sodium 141 mmol/L (136-145)
[2021-04-11 13:52] LABS: Hemoglobin A1C 5.8 % (4.0-6.0)
== END ==
PROVIDERS: Visit Provider Internal Medicine Adolescent Medicine
DX: E11.9 Type 2 diabetes mellitus without complications (principal); Z79.84 Long term (current) use of oral hypoglycemic drugs
CPT/HCPCS: 36415; 80048; 83036

== ENCOUNTER → 2021-04-27 12:19 | Outpatient (CLI) | payer OTHER, SELFPAY ==
--- NOTE | 2021-04-27 | CA_ITS ---
APPROVED REPORT Exam: Pharmacologic Technologist: Christie Rojas, Ht: 6 ft 1 in Wt: 224 lbs BSA: 2.26 m2 HR: 53 bpm BP: 145/98 mmHg Medical History Medications: Vitamin D3,,,,, Atorvastatin,,,,, Protonix,,,,, Quetiapine,,,,, Magnesium OXIDE,,,,, PolyethYLENE,,,,, Apixaban,,,,, AmiTRIPTLine,,,,, Metformin ER,,,,, Gylycol,,,,, SpirOnLAtone,,,,, Stress Test Details Test: LEXISCAN HR Resting HR: 62 bpm Max Heart Rate (APMHR): 162.483293 bpm Max HR Achieved: 91 bpm Target HR (85% APMHR): 137.420804 bpm % of APMHR: 56.17 Recovery HR: 87 bpm BP Resting BP: 145/98 mmHg Max BP: 145/98 mmHg Recovery BP: 131.0/80.0 mmHg ECG Resting ECG: Sinus jj, low voltage QRS Clinical Exercise duration: 04:00 min Highest Stage Achieved: Stress ECG Conclusion Symptoms: SOA, malaise. No CP Arrhythmias/Ectopy: None ST-T Changes: No significant changes Conclusion: Unremarkable Lexiscan stress. Myoview images reported separately Electronically signed by : Maxime Lyman, 04/29/2021 12:46:33
--- NOTE | 2021-04-27 12:25 | NM_ITS ---
APPROVED REPORT Exam: Nuclear Stress Test Indication: HTN, D.M., HYPERLIPIDEMIA, SOB, FATIGUE Patient Location: Outpatient Stress Tech: Christie Rojas [place] Tech:Meg Munoz GARYFran RT (R)(N)(M) Ht: 6 ft 1 in Wt: 230 lbs HR: 53 bpm BP: 145/98 mmHg BSA: 2.28 m2 BMI: 30.3 History: HTN, D.M., HYPERLIPIDEMIA, SOB, FATIGUE Procedure: Patient received a 0.4 mg of intravenous Lexiscan, resting heart rate 53 bpm, resting blood pressure 145/98 mmHg, with Lexiscan maximum heart rate achived was 90 bpm which is % of the maximum predicted heart rate and blood pressure was 127/88 mmHg. With Lexiscan, patient denied any complaint of chest pain. Cardiac Stress and Resting SPECT Images: Cardiac Stress and Resting SPECT images were obtained using technetium 99m Myoview 31.7 mCi stress and 10.62 mCi at rest. Ejection fraction: 59% No wall motion abnormalities. No fixed or reversible defects. Conclusion: Normal Electronically signed by : Brennon Little MD 04/29/2021 14:21:20
== END ==
PROVIDERS: PCP Internal Medicine Adolescent Medicine; Visit Provider Internal Medicine Adolescent Medicine
DX: R06.00 Dyspnea, unspecified (principal)
CPT/HCPCS: 78452; 93017; A9502; J2785

== ENCOUNTER → 2021-05-30 15:24 | Outpatient (POV) | payer OTHER, SELFPAY | PROVIDERS: Visit Provider Nurse Practitioner Family | DX: Z00.00 Encounter for general adult medical examination without abnormal findings (principal) ==

== ENCOUNTER → 2021-05-30 16:56 | Outpatient (CLI) | payer OTHER, SELFPAY ==
[2021-05-30 17:48] LABS: Basophils # 0.1 K/mm3 (0-0.2); Basophils % 1.3 % (0.1-2.0); Eosinophils # 0.1 K/mm3 (0.0-0.4); Eosinophils % 1.7 % (0.1-12.0); Hematocrit 39.9 % (42.0-52.0); Hemoglobin 13.1 g/dL (14.1-18.0); Lymphocytes # 2.2 K/mm3 (0.7-4.5); Lymphocytes % 32.5 % (10-50); Mean Corpuscular HGB Conc 32.7 g/dL (31.8-35.4); Mean Corpuscular Hemoglobin 31.2 pg (27.0-31.2); Mean Corpuscular Volume 95.3 fl (80-94); Mean Platelet Volume 8.6 fl (7.4-10.4); Monocytes # 0.7 K/mm3 (0.1-1.0); Monocytes % 10.7 % (1.7-9.3); Neutrophils # 3.7 K/mm3 (1.8-7.8); Neutrophils % 53.8 % (37.0-80.0); Platelet Count 273 K/mm3 (142-424); Red Blood Count 4.19 M/mm3 (4.60-6.20); Red Cell Distribution Width 15.7 % (11.5-17.5); White Blood Count 6.9 K/mm3 (4.8-10.8)
[2021-05-30 18:34] LABS: Alanine Aminotransferase 131 U/L (12-78); Albumin Level 4.4 g/dl (3.5-5.0); Albumin/Globulin Ratio 1.5 (1.1-1.8); Alkaline Phosphatase 141 U/L (38-126); Anion Gap 17.9 mEq/L (5-15); Aspartate Amino Transferase 129 U/L (17-59); Bilirubin,Total 0.8 mg/dl (0.2-1.3); Blood Urea Nitrogen 22 mg/dl (9-20); Calcium 9.8 mg/dl (8.4-10.2); Carbon Dioxide 25 mmol/L (22.0-30.0); Chloride 105 mmol/L (98-107); Estimated Glomerular Filt Rate 62 ml/min (>60); GFR (African American) 75 ML/MIN (>60); Globulin 2.9 g/dL (1.3-3.2); Glucose 107 mg/dl (74-100); Potassium 4.9 mmoL/L (3.5-5.1); Sodium 143 mmol/L (136-145); Total Protein,Serum 7.3 g/dl (6.3-8.2)
== END ==
PROVIDERS: Visit Provider Nurse Practitioner Family
DX: I10 Essential (primary) hypertension (principal); E78.5 Hyperlipidemia, unspecified; R94.5 Abnormal results of liver function studies
CPT/HCPCS: 36415; 80053; 85025

== ENCOUNTER → 2021-09-30 11:21 | Outpatient (CLI) | payer OTHER, SELFPAY ==
[2021-09-30 12:12] LABS: Basophils # 0.1 K/mm3 (0-0.2); Basophils % 1.4 % (0.1-2.0); Eosinophils # 0.2 K/mm3 (0.0-0.4); Eosinophils % 3.4 % (0.1-12.0); Hematocrit 41.4 % (42.0-52.0); Hemoglobin 13.7 g/dL (14.1-18.0); Lymphocytes % 34.9 % (10-50); Mean Corpuscular HGB Conc 33.1 g/dL (31.8-35.4); Mean Corpuscular Hemoglobin 31.8 pg (27.0-31.2); Mean Corpuscular Volume 96.1 fl (80-94); Mean Platelet Volume 9.6 fl (7.4-10.4); Monocytes # 0.5 K/mm3 (0.1-1.0); Monocytes % 8.8 % (1.7-9.3); Neutrophils % 51.5 % (37.0-80.0); Platelet Count 235 K/mm3 (142-424); Red Cell Distribution Width 14.2 % (11.5-17.5); White Blood Count 5.8 K/mm3 (4.8-10.8)
[2021-09-30 12:28] LABS: Hemoglobin A1C 6.3 % (4.0-6.0)
[2021-09-30 13:57] LABS: Alanine Aminotransferase 53 U/L (12-78); Albumin Level 4.1 g/dl (3.5-5.0); Albumin/Globulin Ratio 1.5 (1.1-1.8); Alkaline Phosphatase 155 U/L (38-126); Anion Gap 12.6 mEq/L (5-15); Aspartate Amino Transferase 88 U/L (17-59); Bilirubin,Total 0.5 mg/dl (0.2-1.3); Blood Urea Nitrogen 14 mg/dl (9-20); Calcium 9.9 mg/dl (8.4-10.2); Carbon Dioxide 30 mmol/L (22.0-30.0); Chloride 101 mmol/L (98-107); Chol/HDL Ratio 2.9 (1-3.5); Cholesterol 117 mg/dl (140-200); Estimated Glomerular Filt Rate 76 ml/min (>60); GFR (African American) 93 ML/MIN (>60); Globulin 2.8 g/dL (1.3-3.2); Glucose 102 mg/dl (74-100); HDL Cholesterol 40 mg/dl (40-60); Potassium 4.6 mmoL/L (3.5-5.1); Sodium 139 mmol/L (136-145); Total Protein,Serum 6.9 g/dl (6.3-8.2); Triglycerides 200 mg/dl (30-150); VLDL Cholesterol 40 mg/dL (0-40)
[2021-09-30 14:08] LABS: Direct LDL Cholesterol 46.68 mg/dL (100-129)
[2021-09-30 14:14] LABS: 25-OH Vitamin D, Total 65.1 ng/mL (30-100)
== END ==
PROVIDERS: Visit Provider Internal Medicine Adolescent Medicine
DX: E11.9 Type 2 diabetes mellitus without complications (principal); E78.01 Familial hypercholesterolemia; E55.9 Vitamin D deficiency, unspecified; Z79.84 Long term (current) use of oral hypoglycemic drugs
CPT/HCPCS: 36415; 80053; 80061; 82306; 83036; 85025

== ENCOUNTER 2021-11-22 15:00 | Outpatient (RCR) | payer OTHER, SELFPAY ==
--- NOTE | 2021-10-18 17:20 | HMH.PTOPEV ---
PT Outpatient Evaluation Rehab PT Outpatient Evaluation Start: 10/18/21 15:55 Freq: Status: Active Protocol: Document 10/18/21 15:56 FIORFRIEDA (Rec: 10/18/21 17:19 FIORFRIEDA [id number]) Electronically Signed By El Collier PT 10/18/21 15:56 Outpatient Therapy Subjective History Subjective History This is the initial evaluation for Andres Quinones. Pt is a 61 y/o male referred for B neuropathy in both feet/ balance issues. Pt states he has an extensive medical hx of rectal cancer, radiation and chemo, medicated blood clots, medicated DM type 2, and circulation issues. Pt states it was not soon after chemo and radaition 4 years ago that he began to notice his feet going cold and feeling pins/ needles. Pt states he gets dizzy from getting up too fast . Pt reports he tries to walk a mile every day if he can. Pt states he did have one fall last week where he reports happened from him attempting to get up from his couch where he dropped to the floor. Pt states he feels weak and unsteady most times when he stands or transfers. Pt states he has all carpets in his house and that he always wears socks or inside shoes. - note done by Kelsey Jarrett, SPT Chief Complaint Gives out/Unstable,Paresthesia ,Weakness,Decreased Coordination Symptom Type Numbness,Tingling Symptoms Relieved By Nothing Symptoms Aggravated By Sitting,Standing,Physical Activity,Walking Prior Functional Limitations None Current Functional Limitations Housework,Standing,Recreation Activity,Walking,Stairs, Balance Symptom Description Intermittent Hip/Knee Eval MMT bilateral Hip Flexion Strength Grade 4- Good- Hip Abduction Strength Grade 4 Good Hip Adduction Strength Grade 5 Normal Hip Extension Strength Grade Not Test
== END 2021-11-22 15:05 | disposition home or self-care (01) ==
LOC: PT 15:00
PROVIDERS: PCP Internal Medicine Adolescent Medicine; Visit Provider Internal Medicine Adolescent Medicine
DX: G62.9 Polyneuropathy, unspecified (principal); R26.9 Unspecified abnormalities of gait and mobility
CPT/HCPCS: 97110; 97112; 97163; 97530

== ENCOUNTER → 2021-12-07 14:45 | Outpatient (CLI) | payer OTHER, SELFPAY | PROVIDERS: Visit Provider Nurse Practitioner | DX: U07.1 COVID-19 (principal) | CPT/HCPCS: C9803; U0003; U0005 ==

== ENCOUNTER → 2021-12-28 14:57 | Outpatient (CLI) | payer OTHER, SELFPAY | PROVIDERS: PCP Internal Medicine Adolescent Medicine; Visit Provider Surgery | DX: Z01.812 Encounter for preprocedural laboratory examination (principal); Z11.52 Encounter for screening for COVID-19; Z12.11 Encounter for screening for malignant neoplasm of colon; C20 Malignant neoplasm of rectum | CPT/HCPCS: C9803; U0003; U0005 ==

== ENCOUNTER 2022-03-02 17:46 | Emergency (ER) | payer OTHER, SELFPAY ==
[2022-03-02 17:40] VITALS: BP 121/77; PULSE 97; RESP 18; TEMP 36.4; O2SAT 93; BMI 40.1
--- NOTE | 2022-03-02 17:59 | CT_ITS ---
PROCEDURE INFORMATION: Exam: CT Cervical Spine Without Contrast Exam date and time: 03/02/2022 6:13 PM Age: 61 years old Clinical indication: Injury or trauma; Fall; Blunt trauma; Patient HX: Possible ETOH and fell. TECHNIQUE: Imaging protocol: Computed tomography images of the cervical spine without contrast. Radiation optimization: All CT scans at this facility use at least one of these dose optimization techniques: automated exposure control; mA and/or kV adjustment per patient size (includes targeted exams where dose is matched to clinical indication); or iterative reconstruction. COMPARISON: CT CERVICAL SPINE WO CON 03/16/2020 2:15 PM FINDINGS: Vertebrae: No acute fracture. Normal alignment. Degenerative changes. C2-C3: No significant disc protrusion. No severe spinal canal stenosis. No significant neural foraminal narrowing. C3-C4: No significant disc protrusion. No severe spinal canal stenosis. No significant neural foraminal narrowing. C4-C5: No significant disc protrusion. No severe spinal canal stenosis. No significant neural foraminal narrowing. C5-C6: No significant disc protrusion. No severe spinal canal stenosis. No significant neural foraminal narrowing. C6-C7: No significant disc protrusion. No severe spinal canal stenosis. No significant neural foraminal narrowing. C7-T1: No significant disc protrusion. No severe spinal canal stenosis. No significant neural foraminal narrowing. Soft tissues: Unremarkable. Lungs: Lung apices are normal. IMPRESSION: No acute traumatic findings.
--- NOTE | 2022-03-02 17:59 | CT_ITS ---
PROCEDURE INFORMATION: Exam: CT Head Without Contrast Exam date and time: 03/02/2022 6:07 PM Age: 61 years old Clinical indication: Injury or trauma; Fall; Blunt trauma (contusions or hematomas); Consciousness not specified; Patient HX: Possible ETOH and fell TECHNIQUE: Imaging protocol: Computed tomography of the head without contrast. Radiation optimization: All CT scans at this facility use at least one of these dose optimization techniques: automated exposure control; mA and/or kV adjustment per patient size (includes targeted exams where dose is matched to clinical indication); or iterative reconstruction. COMPARISON: CT HEAD/BRAIN WO CON 10/22/2019 3:52 PM FINDINGS: Brain: Periventricular and subcortical small vessel ischemic changes. Mild atrophy associated. No acute hemorrhage, mass effect, midline shift, or extra-axial fluid collection. Cerebral ventricles: No ventriculomegaly. Paranasal sinuses: Visualized sinuses are unremarkable. No fluid levels. Mastoid air cells: Visualized mastoid air cells are well aerated. Bones/joints: Unremarkable. No acute fracture. Soft tissues: Unremarkable. IMPRESSION: No acute traumatic intracranial abnormality.
[2022-03-02 18:00] VITALS: BP 117/76; PULSE 99; O2SAT 98
--- NOTE | 2022-03-02 18:11 | PC.NURSE ---
patient to CT with instrument and electrical technician x 2 by stretcher
[2022-03-02 18:44] VITALS: BP 95/70; PULSE 100; O2SAT 96
[2022-03-02 18:50] LABS: Basophils # 0.2 K/mm3 (0-0.2); Basophils % 2.6 % (0.1-2.0); Eosinophils # 0.1 K/mm3 (0.0-0.4); Eosinophils % 1.4 % (0.1-12.0); Hematocrit 42.9 % (42.0-52.0); Lymphocytes # 3.7 K/mm3 (0.7-4.5); Lymphocytes % 39.4 % (10-50); Mean Corpuscular HGB Conc 32.7 g/dL (31.8-35.4); Mean Corpuscular Hemoglobin 29.9 pg (27.0-31.2); Mean Corpuscular Volume 91.5 fl (80-94); Mean Platelet Volume 9.6 fl (7.4-10.4); Monocytes # 0.5 K/mm3 (0.1-1.0); Monocytes % 5.8 % (1.7-9.3); Neutrophils # 4.8 K/mm3 (1.8-7.8); Neutrophils % 50.9 % (37.0-80.0); Platelet Count 224 K/mm3 (142-424); Red Blood Count 4.69 M/mm3 (4.60-6.20); Red Cell Distribution Width 13.9 % (11.5-17.5); White Blood Count 9.3 K/mm3 (4.8-10.8)
--- NOTE | 2022-03-02 18:55 | HMH.EDFALL ---
ED Disposition Condition on Discharge: Fair - Critical Care Critical Care Time: No <Angel Hays - Last Filed: 03/02/22 19:13> <Abelino Ricketts - Last Filed: 03/02/22 23:07> Clinical Impression: Alcohol abuse Alcoholic intoxication Qualifiers: Complication of substance-induced condition: with unspecified complication Qualified Code(s): F10.929 - Alcohol use, unspecified with intoxication, unspecified Disposition: Home, Self-Care Instructions: Alcohol Use Disorder (Alternative Therapy) Additional Instructions: call pcp for follow up Referrals: Niko Duque MD [Primary Care Provider] - Attestation: On 03/02/22, the high probability of a clinically significant, sudden or life threatening deterioration of the following system(s) required my full and direct attention, intervention and personal management. The time I documented below is in addition to time spent performing reported procedures but includes the following listed in this critical care notation. Medical Decision Making - Medical Records Medical records reviewed: Yes: I reviewed the patient's medical records. - Hernandez Inquiry Pt receiving controlled substance: No - Lab Data Result diagrams: 03/02/22 18:41 03/02/22 18:41 - CT Data CT Scan: Head, C-Spine Time Received: 19:[address] Reviewed: Yes: I have reviewed the patient's CT results, I have viewed the radiologist's interpretation Preliminary Findings: Normal/NAD, No Fracture Seen - Reevaluation(s) Time: 19:14 <LisAngel - Last Filed: 03/02/22 19:13> - Lab Data Lab results reviewed: Yes: I reviewed the patient's lab results. Result diagrams: 03/02/22 18:41 03/02/22 18:41 - ECG Data Tracing #1 Normal Sinus Rhythm: Yes Ischemic changes: non-specific ST-T wave changes <Abelino Ricketts - Last Filed: 03/02/22 23:07> Vital Signs: 03/02/22 17:40 03/02/22 18:00 03/02/22 18:44 Temperature 97.5 F L Temperature Source Oral Pulse Rate 99 H 100 H Pulse Rate [Left Radial] 97 H Respiratory Rate 18 Blood Pressure 117/76 95/70 L Blood Pressure [Right Arm] 121/77 Blood Pressure Mean 85 78 Blood Pressure Mean [Right Arm] 91 Blood Pressure Source [Right Arm] Automatic Cuff Blood Pressure Position [Right Arm] Sitting 02 Sat by Pulse Oximetry 93 L 98 96 Oxygen Delivery Method Room Air 03/02/22 19:01 Temperature Temperature Source Pulse Rate 96 H Pulse Rate [Left Radial] Respiratory Rate Blood Pressure 116/70 Blood Pressure [Right Arm] Blood Pressure Mean 82 Blood Pressure Mean [Right Arm] Blood Pressure Source [Right Arm] Blood Pressure Position [Right Arm] 02 Sat by Pulse Oximetry 96 Oxygen Delivery Method - Lab Data Lab Results 03/02/22 18:41: WBC 9.3, RBC 4.69, Hgb 14.0 L, Hct 42.9, MCV 91.5, MCH 29.9, MCHC 32.7, RDW 13.9, Plt Count 224, MPV 9.6, Neut % (Auto) 50.9, Lymph % (Auto) 39.4, [place] % (Auto) 5.8, Eos % (Auto) 1.4, Baso % (Auto) 2.6 H, Neut # (Auto) 4.8, Lymph # (Auto) 3.7, [place] # (Auto) 0.5, Eos # (Auto) 0.1, Baso # (Auto) 0.2 03/02/22 18:41: Sodium 147 H, Potassium 4.1, Chloride 108 H, Carbon Dioxide 26, Anion Gap 17.1 H, BUN 15, Creatinine 1.20, Estimated Creat Clear 119, Estimated GFR 62, Est GFR ( Amer) 75, Glucose 152 H, Calcium 8.9, Total Bilirubin 0.4, AST 56, ALT 57, Alkaline Phosphatase 153 H, Total Protein 7.5, Albumin 4.3, Globulin 3.2, Albumin/Globulin Ratio 1.3 03/02/22 18:41: Plasma/Serum Alcohol 434 H 03/02/22 18:41: Troponin I < 0.01 03/02/22 22:18: Troponin I < 0.01 Orders (Tests/Meds): ED MEDICATIONS Generic Name Dose Route Start Last Admin Trade Name Freq PRN Reason Stop Dose Admin Sodium Chloride 1,000 mls @ 999 mls/hr 03/02/22 18:00 03/02/22 18:46 Sod Chlor 0.9% 1000ml Bag IV 03/02/22 19:00 999 mls/hr .Q1H1M BRITTANI Administration Multivitamins 10 ml/ Thiamine 1,015 mls @ 150 mls/hr 03/02/22 19:15 03/02/22 19:32 HCl 100 mg/ Magnesium Sulfate IV 03/03/22 02
[2022-03-02 19:01] VITALS: BP 116/70; PULSE 96; O2SAT 96
[2022-03-02 19:02] LABS: Alanine Aminotransferase 57 U/L (12-78); Albumin Level 4.3 g/dl (3.5-5.0); Albumin/Globulin Ratio 1.3 (1.1-1.8); Alkaline Phosphatase 153 U/L (38-126); Anion Gap 17.1 mEq/L (5-15); Aspartate Amino Transferase 56 U/L (17-59); Bilirubin,Total 0.4 mg/dl (0.2-1.3); Blood Urea Nitrogen 15 mg/dl (9-20); Calcium 8.9 mg/dl (8.4-10.2); Carbon Dioxide 26 mmol/L (22.0-30.0); Chloride 108 mmol/L (98-107); Creatinine Clearance Estimated 119 mL/min (50-200); Estimated Glomerular Filt Rate 62 ml/min (>60); GFR (African American) 75 ML/MIN (>60); Globulin 3.2 g/dL (1.3-3.2); Glucose 152 mg/dl (74-100); Potassium 4.1 mmoL/L (3.5-5.1); Sodium 147 mmol/L (136-145); Total Protein,Serum 7.5 g/dl (6.3-8.2)
[2022-03-02 19:10] LABS: Ethyl Alcohol 434 mg/dl (0-10)
--- NOTE | 2022-03-02 20:58 | ECG_ITS ---
APPROVED REPORT Exam: Resting ECG HR:108 bpm ECG Measurements Heart Rate 108 AXES DE 189 P 92 QRSd 105 QRS 0 QT 308 T 24 QTc 371 Conclusion SINUS TACHYCARDIA LOW QRS VOLTAGE IN PRECORDIAL LEADS [QRS DEFLECTION < 1.0 mV IN CHEST LEADS] NONSPECIFIC ST & T-WAVE ABNORMALITY ABNORMAL RHYTHM ECG UNCONFIRMED REPORT Electronically signed by : Niko Duque MD 03/03/2022 09:56:32
[2022-03-02 21:14] LABS: Troponin I < 0.01 ng/ml (0.00-0.034)
--- NOTE | 2022-03-02 21:15 | PC.NURSE ---
FAMILY BROUGHT FOOD TO PATIENT. WCM.
[2022-03-02 23:00] LABS: Troponin I < 0.01 ng/ml (0.00-0.034)
[2022-03-02 23:33] VITALS: BP 154/98; PULSE 102; RESP 16; TEMP 37.3; O2SAT 95
== END 2022-03-02 23:44 | disposition home or self-care (01) ==
PROVIDERS: Emergency Medicine; Emergency Provider Emergency Medicine; PCP Internal Medicine Adolescent Medicine
DX: F10.129 Alcohol abuse with intoxication, unspecified (principal); R41.82 Altered mental status, unspecified; R07.9 Chest pain, unspecified; R00.2 Palpitations; R94.31 Abnormal electrocardiogram [ECG] [EKG]; R00.0 Tachycardia, unspecified; R53.81 Other malaise; I10 Essential (primary) hypertension; I73.9 Peripheral vascular disease, unspecified; K21.9 Gastro-esophageal reflux disease without esophagitis; E78.5 Hyperlipidemia, unspecified; E11.9 Type 2 diabetes mellitus without complications; Z79.01 Long term (current) use of anticoagulants; Z79.84 Long term (current) use of oral hypoglycemic drugs; Z79.899 Other long term (current) drug therapy; Z88.0 Allergy status to penicillin; Z86.718 Personal history of other venous thrombosis and embolism; Z86.711 Personal history of pulmonary embolism
CPT/HCPCS: 70450; 72125; 80053; 84484; 85025; 93005; 96361; 96365; 96366; 96374; 99285; J2405

== ENCOUNTER → 2022-03-14 21:03 | Outpatient (CLI) | payer OTHER, SELFPAY | PROVIDERS: PCP Internal Medicine Adolescent Medicine; Visit Provider Nurse Practitioner Family | DX: G47.33 Obstructive sleep apnea (adult) (pediatric) (principal) | CPT/HCPCS: 95811 ==